=== PATIENT | male | born 1940 | race Caucasian/White ===

== ENCOUNTER → 2018-06-03 10:20 | Outpatient (CLI) | payer OTHER, SELFPAY ==
[2018-06-03 10:53] LABS: Add Manual Diff / Slide Review NO; Eosinophils Percent Auto 3.1 % (2-4); Hematocrit 40.7 % (41-53); Hemoglobin 13.7 g/dL (13.5-17.5); Mean Corpuscular HGB Conc 33.6 % (30-36); Mean Corpuscular Hemoglobin 30.4 PG (26-34); Mean Corpuscular Volume 90.5 fL (80-100); Monocytes Percent Auto 9.6 % (3-14); Neutrophils Absolute Auto 7600 /uL (3000-5900); Neutrophils Percent Auto 71.3 % (50-75); Platelet Count 196 X10^3/uL (150-400); White Blood Cell Count 10.7 X10^3/uL (4.5-11.0)
[2018-06-03 11:08] LABS: C-Reactive Protein Quant 2.1 mg/dL (<1.0)
[2018-06-03 12:07] LABS: Erythrocyte Sedimentation Rate 17 MM/HR (0-15)
== END ==
PROVIDERS: Family Provider Family Medicine; PCP Family Medicine; Visit Provider Physician Assistant
DX: M71.161 Other infective bursitis, right knee (principal)
CPT/HCPCS: 85025; 85651; 86140; 87040

== ENCOUNTER → 2018-06-07 10:29 | Outpatient (CLI) | payer OTHER, SELFPAY ==
[2018-06-07 11:44] LABS: Add Manual Diff / Slide Review NO; Basophils Percent Auto 0.8 % (0-2); Eosinophils Percent Auto 2.8 % (2-4); Hematocrit 39.4 % (41-53); Hemoglobin 13.3 g/dL (13.5-17.5); Lymphocytes Percent Auto 16.8 % (25-40); Mean Corpuscular HGB Conc 33.9 % (30-36); Mean Corpuscular Hemoglobin 30.6 PG (26-34); Mean Corpuscular Volume 90.4 fL (80-100); Monocytes Percent Auto 10.7 % (3-14); Neutrophils Absolute Auto 7100 /uL (3000-5900); Neutrophils Percent Auto 68.9 % (50-75); Platelet Count 189 X10^3/uL (150-400); Red Blood Cell Count 4.36 X10^6/uL (4.5-5.9); Red Cell Distribution Width 13.8 % (11.6-14.8); White Blood Cell Count 10.3 X10^3/uL (4.5-11.0)
[2018-06-07 13:25] LABS: Hemoglobin A1C% w Est Avg Glu 6.3 % (4.0-6.0)
[2018-06-07 15:10] LABS: Microalbumi Creatinin Ratio Ur 18.3 ug/mg CR (<30); Microalbumin Urine Random 2.6 mg/dL (0-1.6)
[2018-06-07 15:45] LABS: Alanine Aminotransferase 23 IU/L (21-72); Albumin Globulin Ratio 1.4 (1.0-2.8); Alkaline Phosphatase 42 U/L (38-126); Aspartate Aminotransferase 21 IU/L (17-59); Blood Urea Nitrogen 18 mg/dL (9-20); Carbon Dioxide 30 mmol/L (22-32); Chloride 102 mmol/L (98-107); Cholesterol 140 mg/dL (140-199); Estimated Glomerular Filt Rate > 60.0 mL/min (>60); Globulin 2.9 g/dL (1.7-4.1); Glucose 105 mg/dL (80-110); HDL Cholesterol 41 mg/dL (40-60); HEMOLYSIS < 15 (0-50); LDL Cholesterol Calculated 82 mg/dL (<100); Potassium 4.4 mmol/L (3.4-5.1); Sodium 141 mmol/L (137-145); Total Protein 6.9 g/dL (6.3-8.2); Triglycerides 85 mg/dL (35-150)
[2018-06-07 16:14] LABS: Prostate Specific Antigen Scrn 0.218 ng/mL (0.1-4.0)
== END ==
PROVIDERS: PCP Family Medicine; Visit Provider Family Medicine
DX: E11.9 Type 2 diabetes mellitus without complications (principal)
CPT/HCPCS: 36415; 80053; 80061; 82043; 82570; 83036; 84443; 85025; G0103

== ENCOUNTER → 2018-08-08 16:47 | Outpatient (CLI) | payer OTHER, SELFPAY ==
--- NOTE | 2018-08-08 16:52 | DI.RAD.S_ITS ---
PROCEDURE: XR FEMUR RT MIN 2V INDICATIONS: thigh pain TECHNIQUE: 3 views of the femur were acquired. COMPARISON: [facility], CR, XR KNEE RT 3V, 08/08/2018, 16:28. FINDINGS: Bones: No fractures or dislocations. No suspicious bony lesions. Degenerative changes are present within the knee as well as the visualized right hip. Soft tissues: No suspicious soft tissue calcifications or masses. IMPRESSION: Degenerative knee and hip changes most consistent with arthritic change. Dictated by: Bethany Kirby M.D. on 08/08/2018 at 17:29 Approved by: Bethany Kirby M.D. on 08/08/2018 at 17:32
--- NOTE | 2018-08-08 16:52 | DI.RAD.S_ITS ---
PROCEDURE: XR KNEE RT 3V INDICATIONS: thigh pain TECHNIQUE: 3 views of the knee were acquired. COMPARISON: [facility], CR, XR FEMUR RT MIN 2V, 08/08/2018, 16:28. FINDINGS: Bones: No fractures or dislocations. No suspicious bony lesions. Moderate medial and patellofemoral degenerative changes are present. Soft tissues: Mild to moderate joint effusion. No suspicious soft tissue calcifications. IMPRESSION: Moderate effusion with degenerative changes at the knee consistent with arthritis. Dictated by: Bethany Kirby M.D. on 08/08/2018 at 17:28 Approved by: Bethany Kirby M.D. on 08/08/2018 at 17:29
== END ==
PROVIDERS: Family Provider Family Medicine; PCP Family Medicine; Visit Provider Family Medicine
DX: M79.651 Pain in right thigh (principal); M17.11 Unilateral primary osteoarthritis, right knee; M25.461 Effusion, right knee
CPT/HCPCS: 73552; 73562

== ENCOUNTER → 2019-05-08 14:39 | Outpatient (CLI) | payer OTHER, SELFPAY ==
[2019-05-08 15:08] LABS: Add Manual Diff / Slide Review NO; Basophils Absolute Auto 100 /uL (0-100); Basophils Percent Auto 0.8 % (0-2); Eosinophils Absolute Auto 200 /uL (0-450); Eosinophils Percent Auto 1.8 % (2-4); Hematocrit 46.3 % (41-53); Hemoglobin 15.5 g/dL (13.5-17.5); Lymphocytes Absolute Auto 1800 /uL (1100-4500); Lymphocytes Percent Auto 21.3 % (25-40); Mean Corpuscular HGB Conc 33.6 % (30-36); Mean Corpuscular Hemoglobin 30.3 PG (26-34); Mean Corpuscular Volume 90.3 fL (80-100); Monocytes Absolute Auto 900 /uL (0-900); Monocytes Percent Auto 10.4 % (3-14); Neutrophils Absolute Auto 5700 /uL (1500-7000); Neutrophils Percent Auto 65.7 % (50-75); Platelet Count 189 X10^3/uL (150-400); Red Blood Cell Count 5.12 X10^6/uL (4.5-5.9); Red Cell Distribution Width 14.3 % (11.6-14.8); White Blood Cell Count 8.7 X10^3/uL (4.5-11.0)
[2019-05-08 15:18] LABS: Alanine Aminotransferase 12 IU/L (21-72); Albumin 4.7 g/dL (3.5-5.0); Albumin Globulin Ratio 1.3 (1.0-2.8); Alkaline Phosphatase 46 U/L (38-126); Aspartate Aminotransferase 23 IU/L (17-59); Blood Urea Nitrogen 21 mg/dL (9-20); Calcium 9.5 mg/dL (8.4-10.2); Carbon Dioxide 31 mmol/L (22-32); Chloride 105 mmol/L (98-107); Cholesterol 170 mg/dL (140-199); Estimated Glomerular Filt Rate > 60.0 mL/min (>60); Globulin 3.5 g/dL (1.7-4.1); Glucose 108 mg/dL (80-110); HDL Cholesterol 42 mg/dL (40-60); HEMOLYSIS < 15 (0-50); LDL Cholesterol Calculated 106 mg/dL (<100); Potassium 4.6 mmol/L (3.4-5.1); Sodium 145 mmol/L (137-145); Total Protein 8.2 g/dL (6.3-8.2); Triglycerides 109 mg/dL (35-150)
[2019-05-08 15:49] LABS: Prostate Specific Antigen Scrn 0.235 ng/mL (0.1-4.0)
[2019-05-08 16:48] LABS: Thyroid Stimulating Hormone 1.35 uIU/mL (0.47-4.68)
== END ==
PROVIDERS: Family Provider Family Medicine; PCP Family Medicine; Visit Provider Family Medicine
DX: E78.2 Mixed hyperlipidemia (principal)
CPT/HCPCS: 36415; 80053; 80061; 84443; 85025; G0103

== ENCOUNTER → 2019-05-11 09:20 | Outpatient (CLI) | payer OTHER, SELFPAY ==
[2019-05-11 10:39] LABS: Hemoglobin A1C% w Est Avg Glu 5.8 % (4.0-6.0)
== END ==
PROVIDERS: PCP Family Medicine; Visit Provider Family Medicine
DX: E11.9 Type 2 diabetes mellitus without complications (principal)
CPT/HCPCS: 36415; 83036

== ENCOUNTER → 2019-07-13 15:45 | Outpatient (CLI) | payer OTHER, SELFPAY ==
[2019-07-13 16:23] LABS: Hematocrit 42.6 % (41-53); Hemoglobin 14.2 g/dL (13.5-17.5); Mean Corpuscular HGB Conc 33.4 % (30-36); Mean Corpuscular Hemoglobin 30.3 PG (26-34); Mean Corpuscular Volume 90.8 fL (80-100); Platelet Count 161 X10^3/uL (150-400); Red Blood Cell Count 4.69 X10^6/uL (4.5-5.9); Red Cell Distribution Width 14.1 % (11.6-14.8); White Blood Cell Count 9.2 X10^3/uL (4.5-11.0)
[2019-07-13 16:37] LABS: C-Reactive Protein Quant 0.5 mg/dL (<1.0)
[2019-07-13 16:52] LABS: Erythrocyte Sedimentation Rate 8 MM/HR (0-15)
== END ==
PROVIDERS: PCP Family Medicine; Visit Provider Ophthalmology
DX: H54.3 Unqualified visual loss, both eyes (principal)
CPT/HCPCS: 36415; 83519; 85027; 85651; 86140

== ENCOUNTER → 2020-06-09 10:07 | Outpatient (CLI) | payer OTHER, SELFPAY ==
--- NOTE | 2020-06-09 10:10 | DI.RAD.S_ITS ---
PROCEDURE: XR ANKLE RT MIN 3V INDICATIONS: Pain RIGHT ANKLE TECHNIQUE: 3 views of the ankle were acquired. COMPARISON: None. FINDINGS: Bones: No fractures or dislocations. Ankle mortise is normally aligned. No suspicious bony lesions. Mild to moderate osteoarthritis at the tibiotalar joint. Soft tissues: No tibiotalar joint effusion. Achilles tendon appears normal. 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 Dictated by: Obed Jaimes M.D. on 06/09/2020 at 11:53 Approved by: Obed Jaimes M.D. on 06/09/2020 at 11:54
[2020-06-09 10:43] LABS: Add Manual Diff / Slide Review NO; Basophils Absolute Auto 100 /uL (0-100); Basophils Percent Auto 1.1 % (0-2); Eosinophils Absolute Auto 200 /uL (0-450); Eosinophils Percent Auto 3.2 % (2-4); Hemoglobin 13.6 g/dL (13.5-17.5); Lymphocytes Absolute Auto 1700 /uL (1100-4500); Mean Corpuscular HGB Conc 33.3 % (30-36); Mean Corpuscular Hemoglobin 30.6 PG (26-34); Mean Corpuscular Volume 91.8 fL (80-100); Monocytes Absolute Auto 700 /uL (0-900); Monocytes Percent Auto 10.6 % (3-14); Neutrophils Absolute Auto 4300 /uL (1500-7000); Neutrophils Percent Auto 61.1 % (50-75); Platelet Count 181 X10^3/uL (150-400); Red Blood Cell Count 4.46 X10^6/uL (4.5-5.9); Red Cell Distribution Width 14.7 % (11.6-14.8)
[2020-06-09 10:54] LABS: Alanine Aminotransferase 16 IU/L (<50); Albumin 4.4 g/dL (3.5-5.0); Albumin Globulin Ratio 1.4 (1.0-2.8); Alkaline Phosphatase 48 U/L (38-126); Aspartate Aminotransferase 26 IU/L (17-59); BUN Creatinine Ratio 22.7 (6-22); Bilirubin Total 0.8 mg/dL (0.2-1.3); Blood Urea Nitrogen 22 mg/dL (9-20); Calcium 9.5 mg/dL (8.4-10.2); Carbon Dioxide 34 mmol/L (22-32); Chloride 105 mmol/L (98-107); Cholesterol 177 mg/dL (140-199); Estimated Glomerular Filt Rate > 60.0 mL/min (>60); Globulin 3.1 g/dL (1.7-4.1); Glucose 106 mg/dL (80-110); HDL Cholesterol 42 mg/dL (40-60); HEMOLYSIS < 15 (0-50); Hemoglobin A1C% w Est Avg Glu 5.9 % (4.0-6.0); LDL Cholesterol Calculated 113 mg/dL (<100); Potassium 4.8 mmol/L (3.4-5.1); Sodium 141 mmol/L (137-145); Total Protein 7.5 g/dL (6.3-8.2); Triglycerides 112 mg/dL (35-150)
[2020-06-09 11:23] LABS: Prostate Specific Antigen Scrn 0.216 ng/mL (0.1-4.0)
[2020-06-09 11:58] LABS: Thyroid Stimulating Hormone 1.58 uIU/mL (0.47-4.68)
== END ==
PROVIDERS: PCP Family Medicine; Referring Provider Family Medicine; Visit Provider Family Medicine
DX: M25.571 Pain in right ankle and joints of right foot (principal); E78.2 Mixed hyperlipidemia; E11.9 Type 2 diabetes mellitus without complications; Z12.5 Encounter for screening for malignant neoplasm of prostate
CPT/HCPCS: 36415; 73610; 80053; 80061; 83036; 84443; 85025; G0103

== ENCOUNTER → 2020-06-12 12:34 | Outpatient (CLI) | payer OTHER, SELFPAY ==
--- NOTE | 2020-06-12 12:35 | DI.RAD.S_ITS ---
PROCEDURE: FL BARIUM SWALLOW INDICATIONS: Dysphagia COMPARISON: None. FINDINGS: Function: There is decreased esophageal peristalsis. Delayed esophageal clearance. Spontaneous gastroesophageal reflux is seen to the level of the thoracic inlet. Morphology: Air-contrast images demonstrate normal mucosal morphology. Single contrast views show no esophageal strictures, extrinsic mass effects, or diverticula. Limited images of the stomach demonstrate normal appearance. IMPRESSION: Spontaneous gastroesophageal reflux Esophageal dysmotility. Dictated by: Foreign Hagen M.D. on 06/12/2020 at 13:45 Approved by: Foreign Hagen M.D. on 06/12/2020 at 13:46
== END ==
PROVIDERS: PCP Family Medicine; Referring Provider Family Medicine; Visit Provider Family Medicine
DX: R13.10 Dysphagia, unspecified (principal); K21.9 Gastro-esophageal reflux disease without esophagitis; K22.4 Dyskinesia of esophagus
CPT/HCPCS: 74220

== ENCOUNTER → 2020-06-30 11:48 | Outpatient (CLI) | payer OTHER, SELFPAY ==
[2020-07-01 21:11] LABS: COVID19 Sendout Not Detected (Not Detect)
== END ==
PROVIDERS: PCP Family Medicine; Visit Provider Physician Assistant
DX: Z11.59 Encounter for screening for other viral diseases (principal)
CPT/HCPCS: 87635

== ENCOUNTER 2020-07-03 07:45 | Day surgery (SDC) | payer OTHER, SELFPAY ==
--- NOTE | 2020-07-03 | PATH_ITS ---
[facility] Accession Number: [id number] . 01 Material submitted: . PART A: esophagus, E-G Junction - GE JUNCTION PART B: colon - POLYP NEAR HEPATIC FLEXURE PART C: colon - POLYP AT 80CM . 02 Diagnosis: A. Gastroesophageal Junction, Biopsy: Squamocolumnar junctional mucosa with specialized intestinal metaplasia, consistent with Novak's esophagus. Negative for dysplasia and malignancy. . B. Colon, Polyp Near Hepatic Flexure, Biopsy: Colonic mucosa with no significant diagnostic abnormality, consistent with polypoid redundancy. Additional levels were examined. Negative for dysplasia and malignancy. . C. Colon, Polyp at 80 cm, Biopsy: Sessile serrated adenoma. MRV 07/08/2020 1325 Local . 02 Electronically signed: . Shanda Purvis MD, Pathologist NPI- [id number] . 01 Gross description: . A. Received in formalin, labeled with the patient's name, MRN and GE junction biopsy, are multiple chu-white irregular fragments of tissue ranging in size from 0.1 cm to 0.2 cm in greatest dimension. The specimen is filtered and entirely submitted in cassette A1. B. Received in formalin, labeled with the patient's name, MRN and polyp near hepatic flexure, are four chu-white irregular fragments of tissue, each measuring 0.2 cm in greatest dimension. The specimen is filtered and entirely submitted in cassette B1. C. Received in formalin, labeled with the patient's name, MRN and polyp at 80 cm, are multiple chu-white irregular fragments of tissue ranging in size from 0.2 cm to 0.5 cm in greatest dimension. the specimen is filtered and entirely submitted in cassette C1. (SD/cmc10 [id number]) /MRV 07/04/2020 [facility] Local . 02 Microscopic: . B. Additional levels were examined. . 02 Pathologist provided ICD-10: D12.6, K22.70 . 02 CPT . 261830, 356666, 913088 Performed at: 01 [facility] [address] [id number] MD Barak Hernandez MD Phone: [phone] Performed at: 02 [facility] [address] [place] [id number] MD Shanda Purvis MD Phone: [phone]
[2020-07-03 08:07] VITALS: BP 151/82; PULSE 78; RESP 16; TEMP 36.2; O2SAT 99
[2020-07-03 08:16] VITALS: BMI 26.7
--- NOTE | 2020-07-03 08:46 | PM.PREOP ---
Pre-operative Note COVID-19 COVID-19 status: Negative Result date/Date tested (Pos, Neg/Pending): 06/30/20 Interval Note History & Physical reviewed/Exam performed by Physician: Yes Changes to H&P: No ASA Class (for procedural sedation): III
[2020-07-03] MEDS: LIDOCAINE 4% SOLN 50 ML 20 ML TOP (09:00)
[2020-07-03] MEDS: LACTATED RINGERS 1,000 ML 200 ML IV (09:00)
[2020-07-03] MEDS: MIDAZOLAM 5 MG/5 ML VIAL IV ×5 (09:01→09:17)
[2020-07-03] MEDS: fentaNYL 250 MCG/5 ML INJ IV ×5 (09:01→09:17)
[2020-07-03 10:00] VITALS: BP 120/86; PULSE 65; RESP 10; TEMP 36.7; O2SAT 92
--- NOTE | 2020-07-03 10:01 | PM.OP.ENDO ---
Operative Date/Time/Diagnoses Date of procedure: 07/03/20 Time of procedure: 10:01 Pre-op diagnosis: Dysphagia. Screening for colon cancer. Post-op diagnosis: same (Tortuosity of the proximal esophagus. Possible Novak's esophagus. Colon polyps. Prep on satisfactory. Colonoscopy will need to be repeated.) Procedure & Clinicians Study performed: EGD with cold biopsy. Colonoscopy with cold biopsy. Same procedure as scheduled: Yes Indications: Dysphagia. Screening for colon cancer. Surgeon: Raj Salazar Procedure Notes SCOAP/Timeout: Perform Procedure in detail: The patient had topical anesthetic applied to oropharynx. She was placed in left lateral decubitus position and underwent IV sedation directed by the surgeon consisting of fentanyl and Versed. A bite block was inserted and the scope was advanced through it into the esophagus. The esophagus was notable for tortuosity of the proximal esophagus just below the level of the vocal cords for the 1st 5 cm of the esophagus. There was no narrowing.. GE junction was noted at 42 cm from the incisors. The stomach insufflated well. There were no lesions seen in the body, antrum or at the incisura. The pyloric channel was patent. The duodenum was unremarkable to the 4th part. The scope was brought back into the stomach and retroflexed. The proximal stomach was normal in appearance. No evidence of hiatal hernia.. The scope was straightened and brought out through the esophagus again. There was an appearance suggestive of possible Novak's esophagus of biopsies were taken at the GE junction. No other lesions were seen. There was no narrowing of the esophagus. The scope was removed and the patient tolerated the procedure well. The patient was then repositioned and placed in the left lateral decubitus position and underwent additional IV sedation directed by the surgeon consisting of fentanyl and Versed. Digital exam was remarkable for a possible very small nodule just to the left of midline on his distal prostate. The scope was inserted and advanced through the rectum into the sigmoid, descending, transverse, and ascending colon. The patient had sigmoid diverticulosis. He had a lot of fluid in his colon. Unfortunately he also had a lot of very hard small seeds which blocked the suction mechanism of the scope repeatedly. It finally reached a point where it completely blocked the scope and despite passing brushes through the channels I could not get the suction to function. The cecum was reached but was fluid filled and I could not suction it out. The scope was gradually brought out. There were numerous areas that were poorly seen due to fluid which I could not remove. Polyps were found at the area near the hepatic flexure and at 80 cm from anal verge. These were removed with cold biopsy forceps.. The scope was ultimately removed. the patient tolerated the procedure well. The prep was poor. The scope should be rescheduled within the next year. Scope withdrawal time: Not recorded due to the poor p Sedation minutes: 53 Findings: Novak's esophagus (Possible), diverticulosis, polyp and other findings (Possible small prostate nodule to the left of midline) Specimen(s): other (GE junction biopsies. Polyp biopsies) Complications: none Post-procedure Recommendations: Colonscopy in 1 year (Colonoscopy Should be rescheduled within 1 year) Follow up: as needed (For scope within 1 year) Disposition: PACU
[2020-07-03 10:05] VITALS: BP 147/94; PULSE 69; RESP 12; O2SAT 95
[2020-07-03 10:10] VITALS: BP 149/92; PULSE 76; RESP 14; O2SAT 92
[2020-07-03 10:20] VITALS: BP 151/92; PULSE 82; RESP 16; TEMP 36.5; O2SAT 92
[2020-07-03 10:40] VITALS: BP 146/82; PULSE 60; RESP 18; O2SAT 96
== END 2020-07-03 10:50 | disposition home or self-care (01) ==
PROVIDERS: PCP Family Medicine; Referring Provider Specialist; Visit Provider Specialist
PROC: 0DJ08ZZ Inspection of Upper Intestinal Tract, Via Natural or Artificial Opening Endoscopic (ICD-10-PCS; CPT 43235; principal; 2020-07-03 08:45)
PROC: 0DJD8ZZ Inspection of Lower Intestinal Tract, Via Natural or Artificial Opening Endoscopic (ICD-10-PCS; CPT 45378; 2020-07-03 08:45)
DX: Z12.11 Encounter for screening for malignant neoplasm of colon (principal); R13.10 Dysphagia, unspecified; K57.30 Diverticulosis of large intestine without perforation or abscess without bleeding; R63.4 Abnormal weight loss; K22.70 Barrett's esophagus without dysplasia; D12.6 Benign neoplasm of colon, unspecified
CPT/HCPCS: 45380; 43239; 99152; 99153; J2250; J3010

== ENCOUNTER → 2020-10-08 08:59 | Outpatient (CLI) | payer OTHER, SELFPAY ==
--- NOTE | 2020-10-08 | DI.ECHO.S_ITS ---
[facility]---------+ [facility] +---------+ : : [address] : : : : [id number] : : : : Phone: [phone]+ Echocardiogram Report + + :Name: BERNADINE MARTINEZ Study Date: 10/08/2020 Height: 72 in : :[facility] Weight: 202 lb : : Gender: Male BSA: 2.1 m2 : :: 1940 Age: 80 yrs BP: 158/86 mmHg: :Reason For Study: ATRIAL FIBRILLATION : :Ordering Physician: VIKY, : :LAYLA Performed By: Marycruz Hu : :Referring: LAYLA CONTRERAS : + + Interpretation Summary 1) Mildly enlarged left ventricle with moderately reduced systolic function (EF 35-40%). 2) Mildly enlarged right ventricle with mildly reduced function. 3) Severe biatrial enlargement. 4) There is moderate mitral regurgitation that is directed posteriorly. 5) The ascending aorta is mild-moderately enlarged at 4.4cm. 6) Hypertension present during the study (BP 158/86mmHg). 7) Compared to the Echo done 09/20/2016, LVEF has dropped from 55-60% to 35-40% on this study. Procedure: A two-dimensional transthoracic echocardiogram with color flow and Doppler was performed. Comparison is made with the echocardiogram of 09/20/2016. The study quality was technically adequate. The patient was in atrial flutter with heart rates between 48-62 bpm during the exam. Left Ventricle: The estimated left ventricular end diastolic volume is 151 ml. The left ventricle is mildly dilated. Left ventricular wall thickness is borderline increased. The ejection fraction is estimated to be 35-40%. There is moderate global hypokinesis of the left ventricle. Diastolic function could not be accurately assessed due to atrial fibrillation. Right Ventricle: The right ventricle is mildly dilated. Right ventricular systolic function is mildly reduced. Atria: The left atrium is severely dilated. The right atrium is severely dilated. There is no Doppler evidence for an interatrial shunt. Mitral Valve: The mitral valve leaflets appear mildly thickened, but open well. There is moderate mitral regurgitation. There is an eccentric jet of mitral regurgitation that is directed posteriorly. Aortic Valve: The aortic valve is trileaflet. The aortic valve opens well. The aortic valve is mildly calcified. There is no aortic valve stenosis. No aortic regurgitation is present. Tricuspid Valve: The tricuspid valve is normal in structure and function. There is mild tricuspid regurgitation. Pulmonic Valve: The pulmonic valve is not well visualized. There is trace pulmonic regurgitation. Great Vessels: The aortic root is normal size. The ascending aorta is mild- moderately enlarged. The IVC is of normal diameter and collapses greater than 50% with a sniff. This suggests a low right atrial pressure of 3 mm Hg. Pericardium/ Pleura There is no pericardial effusion. There is no pleural effusion. MMode/2D Measurements & Calculations LVIDd: 5.5 cm LVOT diam: 2.2 cm LVIDs: 5.0 cm Ao root diam: 3.6 cm FS: 9.9 % asc Aorta Diam: 4.4 cm EPSS: 1.1 cm Ao Arch Diam (Prox Trans): 3.0 cm IVSd: 1.1 cm LVPWd: 0.89 cm LV hogan. diameter/BSA (cm/m^2): 2.6 LV sys. diameter/BSA (cm/m^2): 2.3 LA A2 area: 33.2 cm2 RA long axis: 6.9 cm LA A4 area: 29.7 cm2 RA area: 29.6 cm2 LA length (vol): 7.0 cm RA vol: 108.5 ml LA vol: 119.3 ml RA : 50.7 ml/m2 LA vol index: 55.8 ml/m2 IVC diam: 1.8 cm RVD1 (basal): 4.4 cm TAPSE: 1.7 cm Doppler Measurements & Calculations Ao V2 max: 120.5 cm/sec LVOT Max Emeterio: 67.3 cm/sec Ao V2 mean: 82.8 cm/sec LV V1 max P.8 mmHg Ao max P.8 mmHg LV V1 VTI: 15.7 cm Ao mean P.1 mmHg ANDREW(I,D): 2.4 cm2 Ao V2 VTI: 25.5 cm ANDREW(V,D): 2.2 cm2 sev ratio: 0.61 ANDREW indexed to BSA (cm^2/m^2): 1.1 MV E max emeterio: 85.5 cm/sec PA V2 max: 55.6 cm/sec MV A max emeterio: 29.4 cm/sec PA V2 mean: 32.8 cm/sec MV E/A: 2.9 PA mean P.52 mmHg Med Peak E' Emeterio: 3.2 cm/sec PA pr(Accel): 39.6 mmHg E/E' med: 26.6 Lat Peak E' Emeterio: 7.1 cm/sec E/E' lat: 12.0 E/e' average: 19.3 MV dec time: 0.19 sec MVA(VTI): 2.7 cm2 MR ERO: 0.16 cm2 MV V2 mean: 53.6 cm/sec MR PISA: 2.8 cm2 MV mean P.5 mmHg MR flow rate: 89.7 cm3/sec MV V2 VTI: 22.7 cm MR PISA radius: 0.67 cm SV(LVOT): 62.2 ml Reading Physician:01:38 PM
== END ==
PROVIDERS: PCP Family Medicine; Referring Provider Internal Medicine Cardiovascular Disease; Visit Provider Internal Medicine Cardiovascular Disease
DX: I08.1 Rheumatic disorders of both mitral and tricuspid valves (principal); I77.89 Other specified disorders of arteries and arterioles; I48.11 Longstanding persistent atrial fibrillation
CPT/HCPCS: 93306

== ENCOUNTER → 2020-10-15 10:38 | Outpatient (CLI) | payer OTHER, SELFPAY ==
[2020-10-15 11:15] LABS: Hemoglobin A1C% w Est Avg Glu 6.3 % (4.0-6.0)
[2020-10-15 11:30] LABS: BUN Creatinine Ratio 25.8 (6-22); Blood Urea Nitrogen 23 mg/dL (9-20); Calcium 9.1 mg/dL (8.4-10.2); Carbon Dioxide 33 mmol/L (22-32); Chloride 106 mmol/L (98-107); Cholesterol 133 mg/dL (140-199); Estimated Glomerular Filt Rate > 60.0 mL/min (>60); Glucose 116 mg/dL (80-110); HDL Cholesterol 34 mg/dL (40-60); HEMOLYSIS < 15 (0-50); LDL Cholesterol Calculated 78 mg/dL (<100); Sodium 140 mmol/L (137-145); Triglycerides 107 mg/dL (35-150)
== END ==
PROVIDERS: PCP Family Medicine; Referring Provider Family Medicine; Visit Provider Family Medicine
DX: E11.9 Type 2 diabetes mellitus without complications (principal); E78.2 Mixed hyperlipidemia; I10 Essential (primary) hypertension
CPT/HCPCS: 36415; 80048; 80061; 83036

== ENCOUNTER → 2020-10-24 16:12 | Outpatient (CLI) | payer OTHER, SELFPAY ==
--- NOTE | 2020-10-24 16:14 | DI.MRI.S_ITS ---
PROCEDURE: MR ANKLE RT WO CON INDICATIONS: Persistent pain TECHNIQUE: Noncontrast sagittal T1 spin echo and T2 fast spin echo with fat saturation, axial proton density fast spin echo and T2 fast spin echo with fat saturation, coronal T1 spin echo and T2 fast spin echo with fat saturation through the ankle/hindfoot. COMPARISON: None. FINDINGS: Image quality: Excellent. Bones and joints: No bone marrow contusions or fractures. No hindfoot coalitions. Severe tibiotalar joint degeneration. Extensive T2 hyperintensity involving the medial and lateral talar dome, suggestive of cysts versus less likely erosions. Small tibiotalar joint effusion. Medial structures: Posterior tibialis intact. Tiny unfused accessory navicular. There is posterior tibialis tenosynovitis Flexor digitorum longus intact. Flexor hallucis longus tendon intact. The posterior tibial neurovascular bundle appears normal within the tarsal tunnel, without extrinsic mass effect. Deltoid ligament complex not well visualized although this finding probably chronic.. The spring ligament appears intact. Lateral structures: Anterior talofibular ligament not well seen and probably ruptured although unknown age, probably chronic. Calcaneofibular ligament intact. Posterior talofibular ligament intact. Anterior and posterior tibiofibular ligaments appear intact, as is the intermalleolar ligament. Tibiofibular syndesmosis is normal in width at 2 mm or less. Peroneus longus and brevis tendons appear normal. Peroneus longus and brevis tenosynovitis. Bony peroneal tubercle and retrotrochlear prominence are normal in size. Sinus tarsi demonstrates normal fatty signal, without edema, fibrosis, or cyst formation. Anterior structures: Tibialis anterior intact. Extensor hallucis longus intact. Extensor digitorum longus tendon intact. Dorsal talonavicular ligament appears intact. Posterior and plantar structures: Achilles tendon is intact. Medial and lateral bands of the plantar fascia intact. No abductor digiti quinti muscle atrophy to suggest Alston neuropathy. 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 Probably chronic sprain/rupture of the anterior talofibular ligament. Tibiotalar joint effusion and prominent degenerative subchondral cystic change versus less likely erosions at the medial and lateral talar dome. Dictated by: Foreign Hagen M.D. on 10/27/2020 at 8:29 Approved by: Foreign Hagen M.D. on 10/27/2020 at 8:40
== END ==
PROVIDERS: PCP Family Medicine; Referring Provider Family Medicine; Visit Provider Family Medicine
DX: M25.571 Pain in right ankle and joints of right foot (principal); M65.871 Other synovitis and tenosynovitis, right ankle and foot; S93.421A Sprain of deltoid ligament of right ankle, initial encounter
CPT/HCPCS: 73721

== ENCOUNTER 2021-05-27 09:30 | Outpatient (RCR) | payer OTHER, SELFPAY ==
--- NOTE | 2021-01-16 11:53 | ST.OPIE ---
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 Davis Reason for Referral dysphonia Setting Setting Outpatient Care Patient History General Information Pt is a pleasant 80 year old male seen for a voice evaluation. Pt reported that approximately 2 years ago, he had shingles in his mouth and pharynx (varacellar zoster). Since that time, he has noted a change in his voice. He describes his voice as frequently changing, difficult to be heard and periodically aphonic. he saw Dr Mccoy, ENT, who diagnosed unilateral vocal fold paresis/weakness and recommended speech therapy . Occupational Status Occupation Status Retired Oral Motor Assessment Source: [employer] ([employer]). Oral-Motor Eval Completed Yes Oral-Motor Assessment Informal evaluation noted structures and function to be WFL. - Laryngeal Performance Voice Handicap Index Function Subtotal 17 Physical Subtotal 16 Emotional Subtotal 14 Total Score 47 Severity Moderate (31-60) CAPE-V Overall Severity 65 Roughness 80 Breathiness 76 Strain 35 Pitch 58 Loudness 5 Normal Resonance? Yes Additional Features Diplophonia,Glottal Sepulveda, Falsetto,Aphonia,Pitch Instability Maximum Phonation Time MPT Norms: Women (15-25) Men (25-35) Loudness (50-60 dB); Speaking Rate: Oral Reading of Sentences (190 Words Per Minute); Oral Reading of Paragraphs (160-170 WPM); Speaking Rate in Conversation (150-250 WPM) Maximum Phonation Time 14.6 Maximum Phonation Time Adequate for Speech,Unstable Tone,Unstable Pitch,Unstable Loudness Jitter/Shimmer Norms: Jitter (Less than or equal to 1.040% - Frequency) Norms: Shimmer (Less than or equal to 3.810% - Amplitude) Jitter 7.41 Shimmer 15.88 Pitch Flaxton Pitch Flaxton Pitch Breaks,Cessation of Voicing Pitch Flaxton Comments Pt was able to reach falsetto . With falsetto, vocal quality improved Muscle Tension Assessment Muscle Tension Assessment Neck,Shoulders Breath Support Breath Support At Rest Abdominal Breath Support Sustained Phonation Abdominal,Mixed Breath Support Conversation Abdominal Speaks on Room Air Yes Postural Alignment Stance Balanced Neck Static Shoulders Symmetrical Voice Pitch Range Norms: Women (100-300 Hz) Men (70-250 Hz) Fundamental Frequency Norms: Women (Mean: 225 Hz; Range: 155-334 Hz) Men ( Mean: 128 Hz; Range: 85-196 Hz) Voice Pitch Excessive Variation,Pitch Breaks,Diplophonia Voice Loudness Excessive Variation Voice Phonatory-based Quality Breathy,Hoarse,Loss of Voice, Glottal Sepulveda,Pitch Breaks, Diplophonia Fundamental Frequency 164.6 Paradoxical Vocal Fold Movement No Indications Resonance Nasal Resonance Normal Oral Resonance Normal Therapeutic Techniques Other Tactics Vocal adduction exercises to increase medial compression/ strength Findings Findings Moderate-Severe Impairment Observations pt reported that he gets tension in his shoulders and neck area Voice/Resonance Assessment Assessment 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 Vocal quality demonstrates hoarseness, glottal sepulveda, pitch instability, loudness instability, pitch breaks and aphonia. Vocal adduction exercises were demonstrated and satisfactorily practiced by the pt. Written descriptions of the exercises was provided to the pt, who noted he understood. Pt indicated he was appreciative. Prognosis Rehabilitation Potential Good - Recommendations Treatment Recommended Yes Treatment Frequency/Duration 1x weekly; every 3-4 weeks after that for approximately 3 -4 months Short Term Goals Pt will complete vocal adduction exercises as described daily, as reported by pt. Pt will understand the anatomy and function of the laryngeal structures. Television Inspector Goals Pt's overall vocal quality will improve to WFL. Patient/Caregiver Education Patient/Family Education Described results of evaluation,Patient Understanding,Patient Demonstration
--- NOTE | 2021-01-16 11:55 | ST.OPPOC ---
[facility] Visit Care Team Role Provider Type Gordon Austin MD Attending Provider Physician Primary Care Provider Referring Provider Address: [address] [place] [address], [place] [address], [place], [address] Speech Pathology Plan of Care General Information Pt is a pleasant 80 year old male seen for a voice evaluation. Pt reported that approximately 2 years ago, he had shingles in his mouth and pharynx (varacellar zoster). Since that time, he has noted a change in his voice. He describes his voice as frequently changing, difficult to be heard and periodically aphonic. he saw Dr Mccoy, ENT, who diagnosed unilateral vocal fold paresis/weakness and recommended speech therapy . Plan of Care Dates 01/16/21-04/18/21 Shelter Goals Pt's overall vocal quality will improve to WFL. Electronically Signed by: RACIEL Calabrese 01/16/21 [id number] Please Sign and Return: I have reviewed this Plan of Care and certify that the skilled therapy services above are required to meet the patient?s needs. Physician Signature Date Printed Name and Credentials Clinical Instructor Signature Printed Name and Credentials
--- NOTE | 2021-01-23 10:01 | ST.OPTN ---
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 Pt reported that approximately 2 years ago, he had shingles in his mouth and pharynx (varacellar zoster). Since that time, he has noted a change in his voice. He describes his voice as frequently changing, difficult to be heard and periodically aphonic. he saw Dr Mccoy, ENT, who diagnosed unilateral vocal fold paresis/weakness and recommended speech therapy . 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 Vocal quality demonstrated hoarseness, glottal strange, pitch insability, loudness instability, pitch breaks and aphonia. Subjective Identification Type Name,Date of Chief Complaint(s) Voice Rehab Expectation/Goals: Patient Goals Improved vocal quality Patient Knowledge/Awareness of WET AND DRY SUGAR BIN OPERATOR Role Excellent in Treatment Patient/Caregiver Compliance with Home Excellent Exercise Program Objective Short Term Goals Pt will complete vocal adduction exercises as described daily, as reported by pt. Pt will understand the anatomy and function of the laryngeal structures. Detention Goals Pt's overall vocal quality will improve to WFL. Treatment Activities Reviewed vocal adduction exercises. Pt reported that after ~5 seconds on prolonged phonation, his vocal quality diminishes. Discussed the effect of fatigue on the paralyzed fold. Suggested trying to prolog the good vocal quality for ~1 sec more , building endurance. Pt reports doing the adduction exercises 1x/day. It was suggested that he increase the exercises to 3-4x/day. Will follow up with pt in 3 weeks. Assessment Patient Response to Treatment Excellent Rehab Potential Good Impairments Identified Dysphonia Progress Towards Goals Good Progress Assessment of Overall Progress Improving Reviewed with Patient Goals,Home Exercise Program Patient/Caregiver Understanding Excellent Plan Amount of Therapy Recommended 3-4 Months Comment every 3 weeks Length of Session 45 Minutes Treatment Emphasis Next Session review and demonstrate exercises performed as HEP. Therapeutic Contents Voice Training Provided Patient/Caregiver Instruction Home Exercise Program, Questions/Concerns Therapy Recommendations Continue with Current Program
--- NOTE | 2021-02-11 10:19 | ST.OPTN ---
Visit Care Team Role Provider Type Gordon Austin MD Attending Provider Physician Primary Care Provider Referring Provider Address: [address] [place] [address], [address], [place], [address] VITICULTURIST Treatment Note VITICULTURIST Treatment Note Start: 01/16/21 10:25 Freq: Status: Active Protocol: Document 02/11/21 09:32 LNK (Rec: 02/11/21 10:19 LNK [email or web address]) Speech Pathology Treatment Note Session Time Visit Start Time 09:30 Visit Stop Time 10:00 Total Visit Minutes 30 Visit Information Visit Number 3 Plan of Care Dates 01/16/21-04/18/21 Setting Treatment Setting Outpatient Care Visit Type Note Type Treatment Note Next Note Type Next Note Type Treatment Note General Information General Information Pt is a pleasant 80 year old male seen for a voice evaluation. Pt reported that approximately 2 years ago, he had shingles in his mouth and pharynx (varacellar zoster). Since that time, he has noted a change in his voice. He describes his voice as frequently changing, difficult to be heard and periodically aphonic. he saw Dr Mccoy, ENT, who diagnosed unilateral vocal fold paresis/weakness and recommended speech therapy . 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 Vocal quality demonstrated hoarseness, glottal strange, pitch instability, loudness instability, pitch breaks and aphonia. Subjective Identification Type Name,Date of Chief Complaint(s) Voice Rehab Expectation/Goals: Patient Goals Improved vocal quality Patient Knowledge/Awareness of VITICULTURIST Role Excellent in Treatment Patient/Caregiver Compliance with Home Excellent Exercise Program Objective Short Term Goals Pt will complete vocal adduction exercises as described daily, as reported by pt. Pt will understand the anatomy and function of the laryngeal structures. Custodial Goals Pt's overall vocal quality will improve to WFL. Treatment Activities Reviewed vocal adduction exercises. Pt reported that increased duration of prolonged phonation with more stable vocal quality. Today Jitter was .84 (WNL) and Shimmer was 5.8 (slightly above normal. Baritone pitch is more stable. Pt has increased the exercises to 3- 4x/day. Will follow up with pt in 4 weeks. Assessment Patient Response to Treatment Excellent Rehab Potential Good Impairments Identified Dysphonia Progress Towards Goals Good Progress Assessment of Overall Progress Improving Reviewed with Patient Goals,Home Exercise Program Patient/Caregiver Understanding Excellent Plan Amount of Therapy Recommended 3-4 Months Comment every 4 weeks Length of Session 45 Minutes Treatment Emphasis Next Session review and demonstrate exercises performed as HEP. Therapeutic Contents Voice Training Provided Patient/Caregiver Instruction Home Exercise Program, Questions/Concerns Therapy Recommendations Continue with Current Program
--- NOTE | 2021-03-12 17:09 | ST.OPTN ---
Visit Care Team Role Provider Type Gordon Austin MD Attending Provider Physician Primary Care Provider Referring Provider Address: [address] [place] [address], [address], [place], [address] MANAGER SUMMER Treatment Note MANAGER SUMMER Clinical Instructor Line Start: 03/12/21 13:14 Freq: Status: Active Protocol: Document 03/12/21 17:04 LNK (Rec: 03/12/21 17:04 LNK [email or web address]) Clinical Instructor Signature Clinical Instructor Clinical Instructor Yes MANAGER SUMMER Treatment Note Start: 01/16/21 10:25 Freq: Status: Active Protocol: Document 03/12/21 12:50 HM (Rec: 03/12/21 13:07 HM [email or web address]) Speech Pathology Treatment Note Session Time Visit Start Time 11:30 Visit Stop Time 12:10 Total Visit Minutes 40 Visit Information Visit Number 4 Plan of Care Dates 01/16/21-04/18/21 Setting Treatment Setting Outpatient Care Visit Type Note Type Treatment Note Next Note Type Next Note Type Treatment Note General Information General Information Pt is a pleasant 80 year old male seen for a voice evaluation. Pt reported that approximately 2 years ago, he had shingles in his mouth and pharynx (varacellar zoster). Since that time, he has noted a change in his voice. He describes his voice as frequently changing, difficult to be heard and periodically aphonic. he saw Dr Mccoy, ENT, who diagnosed unilateral vocal fold paresis/weakness and recommended speech therapy . 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 Vocal quality demonstrated hoarseness, glottal strange, pitch instability, loudess instability, pitch breaks and aphonia. Subjective Identification Type Name,Date of Chief Complaint(s) Voice Rehab Expectation/Goals: Patient Goals Improved vocal quality Patient Knowledge/Awareness of MANAGER SUMMER Role Excellent in Treatment Patient/Caregiver Compliance with Home Excellent Exercise Program Objective Short Term Goals Pt will complete vocal adduction exercises as described daily, as reported by pt. Pt will understand the anatomy and function of the laryngeal structures. Mcc Goals Pt's overall vocal quality will improve to WFL. Treatment Activities Reviewed vocal adduction exercises. Pt presented with an overall more stable vocal quality. However, he reported that he recently developed noticeable symptoms of reflux. He also noted a sore throat. Today, jitter was measured at 2.3294 and shimmer was 8.9527. Both these measurements were above normal limits, likely impacted by his reflux and sore throat. Pt's pitch continues to break into falsetto within parts of conversation. Pt's singing pitch range and fundamental frequency were WNL. Education provided on reflux management and additional glottal adduction without voicing exercises. Recommend a stroboscopy evaluation to assess vocal fold closure. Injection of filler into the vocal fold may be warranted for complete vocal fold adduction during phonation. Assessment Patient Response to Treatment Excellent Rehab Potential Good Impairments Identified Dysphonia Progress Towards Goals Good Progress Assessment of Overall Progress Improving Reviewed with Patient Goals,Home Exercise Program Patient/Caregiver Understanding Excellent Plan Amount of Therapy Recommended 3-4 Months Comment every 4 weeks Length of Session 45 Minutes Treatment Emphasis Next Session review and demonstrate exercises performed as HEP. Therapeutic Contents Voice Training Provided Patient/Caregiver Instruction Home Exercise Program, Questions/Concerns Therapy Recommendations Continue with Current Program
--- NOTE | 2021-04-06 15:22 | ST.OPTN ---
Visit Care Team Role Provider Type Gordon Austin MD Attending Provider Physician Primary Care Provider Referring Provider Address: [address] [place] [address], [address], [place], [address] SHIFT FOREMAN Treatment Note SHIFT FOREMAN Clinical Instructor Line Start: 03/12/21 13:14 Freq: Status: Active Protocol: Document 04/06/21 15:07 LNK (Rec: 04/06/21 15:07 LNK [id number]) Clinical Instructor Signature Clinical Instructor Clinical Instructor Yes SHIFT FOREMAN Treatment Note Start: 01/16/21 10:25 Freq: Status: Active Protocol: Document 04/06/21 11:41 HM (Rec: 04/06/21 11:54 HM [email or web address]) Speech Pathology Treatment Note Session Time Visit Start Time 10:30 Visit Stop Time 11:15 Total Visit Minutes 45 Visit Information Visit Number 5 Plan of Care Dates 01/16/21-04/18/21 Setting Treatment Setting Outpatient Care Visit Type Note Type Treatment Note Next Note Type Next Note Type Treatment Note General Information General Information Pt is a pleasant 80 year old male seen for a voice evaluation. Pt reported that approximately 2 years ago, he had shingles in his mouth and pharynx (varacellar zoster). Since that time, he has noted a change in his voice. He describes his voice as frequently changing, difficult to be heard and periodically aphonic. he saw Dr Mccoy, ENT, who diagnosed unilateral vocal fold paresis/weakness and recommended speech therapy . 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 Vocal quality demonstrated hoarseness, glottal strange, pitch instability, loudness instability, pitch breaks and aphonia. Subjective Identification Type Name,Date of Chief Complaint(s) Voice Rehab Expectation/Goals: Patient Goals Improved vocal quality Patient Knowledge/Awareness of SHIFT FOREMAN Role Excellent in Treatment Patient/Caregiver Compliance with Home Excellent Exercise Program Objective Short Term Goals Pt will complete vocal adduction exercises as described daily, as reported by pt. Pt will understand the anatomy and function of the laryngeal structures. Glued Wood Tester Goals Pt's overall vocal quality will improve to WFL. Treatment Activities Pt reports completing vocal adduction exercises once every other day. Pt presented with an overall more stable vocal quality at low and higher pitches. Pt's pitch continues to break within conversation in the middle pitch range. Education provided on consistent daily exercise practice and diaphragmatic breathing. Pt has been completing vocal adduction exercises at a lower pitch. Today, he practiced at his natural pitch. Discussed further practice with subtle pitch glide and increasing/ decreasing volume. This practice aims to increase control during vocal fold adduction and reduce pitch breaks. Assessment Patient Response to Treatment Excellent Rehab Potential Good Impairments Identified Dysphonia Progress Towards Goals Good Progress Assessment of Overall Progress Improving Reviewed with Patient Goals,Home Exercise Program Patient/Caregiver Understanding Excellent Plan Amount of Therapy Recommended 3-4 Months Comment every 4 weeks Length of Session 45 Minutes Treatment Emphasis Next Session review and demonstrate exercises performed as HEP. Therapeutic Contents Voice Training Provided Patient/Caregiver Instruction Home Exercise Program, Questions/Concerns Therapy Recommendations Continue with Current Program
--- NOTE | 2021-04-08 15:44 | ST.OPTN ---
Visit Care Team Role Provider Type Gordon Austin MD Attending Provider Physician Primary Care Provider Referring Provider Address: [address] [place] [address], [address], [address] BIOMEDICAL EQUIPMENT TECHNICIAN Treatment Note BIOMEDICAL EQUIPMENT TECHNICIAN Clinical Instructor Line Start: 03/12/21 13:14 Freq: Status: Active Protocol: Document 04/06/21 15:07 LNK (Rec: 04/06/21 15:07 LNK [email or web address]) Clinical Instructor Signature Clinical Instructor Clinical Instructor Yes BIOMEDICAL EQUIPMENT TECHNICIAN Treatment Note Start: 01/16/21 10:25 Freq: Status: Active Protocol: Document 04/08/21 15:34 LNK (Rec: 04/08/21 15:41 LNK [email or web address]) Speech Pathology Treatment Note Visit Information Plan of Care Dates 04/18/21-07/19/21 Setting Treatment Setting Outpatient Care Visit Type Note Type Re-Evaluation Next Note Type Next Note Type Treatment Note General Information General Information Pt is a pleasant 80 year old male seen for a voice evaluation. Pt reported that approximately 2 years ago, he had shingles in his mouth and pharynx (varacellar zoster). Since that time, he has noted a change in his voice. He describes his voice as frequently changing, difficult to be heard and periodically aphonic. he saw Dr Mccoy, ENT, who diagnosed unilateral vocal fold paresis/weakness and recommended speech therapy . 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 Vocal quality demonstrated hoarseness, glottal strange, pitch instability, loudness instability, pitch breaks and aphonia. Subjective Identification Type Name,Date of Chief Complaint(s) Voice Rehab Expectation/Goals: Patient Goals Improved vocal quality Patient Knowledge/Awareness of BIOMEDICAL EQUIPMENT TECHNICIAN Role Excellent in Treatment Patient/Caregiver Compliance with Home Excellent Exercise Program Objective Short Term Goals Pt will complete vocal adduction exercises as described daily, as reported by pt. Pt will understand the anatomy and function of the laryngeal structures.Goal Met New goals: Pt will increase vocal quality via exercised for breath support, appropriate pitch resonance as measured and reported by pt. Senior Care Goals Pt's overall vocal quality will improve to WFL. Treatment Activities Pt reports completing vocal adduction exercises once every other day. Pt presented with an overall more stable vocal quality at low and higher pitches. Pt's pitch continues to break within conversation in the middle pitch range. Education provided on consistent daily exercise practice and diaphragmatic breathing. Pt has been completing vocal adduction exercises at a lower pitch. Today, he practiced at his natural pitch. Discussed further practice with subtle pitch glide and increasing/ decreasing volume. This practice aims to increase control during vocal fold adduction and reduce pitch breaks. Assessment Patient Response to Treatment Excellent Rehab Potential Good Impairments Identified Dysphonia Progress Towards Goals Good Progress Assessment of Overall Progress Improving Assessment of Improvement Overall, pt's vocal quality has improved with adduction exercises. Pt is pleased with his progress. Reviewed with Patient Goals,Progress Being Made,Home Exercise Program Patient/Caregiver Understanding Excellent Plan Amount of Therapy Recommended 2-3 Months Comment every 4 weeks Length of Session 45 Minutes Therapeutic Contents Voice Training Provided Patient/Caregiver Instruction Home Exercise Program,Plan of Care,Questions/Concerns Therapy Recommendations Advance per Rehabilitation Protocol,Recommended Exercises /Activities
--- NOTE | 2021-04-08 15:45 | ST.OPPOC ---
Physical, Occupational & Speech Therapy At [facility] Visit Care Team Role Provider Type Gordon Austin MD Attending Provider Physician Primary Care Provider Referring Provider Address: [address] [place] [address], [address], [place], [address] Speech Pathology Plan of Care HOT WORT SETTLER Clinical Instructor Line Start: 03/12/21 13:14 Freq: Status: Active Protocol: Document 04/06/21 15:07 LNK (Rec: 04/06/21 15:07 LN [email or web address]) Clinical Instructor Signature Clinical Instructor Clinical Instructor Yes Speech Pathology Plan of Care General Information Pt is a pleasant 80 year old male seen for a voice evaluation. Pt reported that approximately 2 years ago, he had shingles in his mouth and pharynx (varacellar zoster). Since that time, he has noted a change in his voice. He describes his voice as frequently changing, difficult to be heard and periodically aphonic. he saw Dr Mccoy, ENT, who diagnosed unilateral vocal fold paresis/weakness and recommended speech therapy . 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 Vocal quality demonstrated hoarseness, glottal strange, pitch instability, loudness instability, pitch breaks and aphonia. Visit Number 5 Plan of Care Dates 04/18/21-07/19/21 Chief Complaint(s) Voice Rehabilitation Expectation/ Improved vocal quality Goals: Patient Goals Patient Knowledge/Awareness of Excellent HOT WORT SETTLER Role in Treatment Patient/Caregiver Compliance Excellent with Home Exercise Program Short Term Goals Pt will complete vocal adduction exercises as described daily, as reported by pt. Pt will understand the anatomy and function of the laryngeal structures.Goal Met New goals: Pt will increase vocal quality via exercised for breath support, appropriate pitch resonance as measured and reported by pt. Intermediate Goals Pt's overall vocal quality will improve to WFL. Treatment Activities Pt reports completing vocal adduction exercises once every other day. Pt presented with an overall more stable vocal quality at low and higher pitches. Pt's pitch continues to break within conversation in the middle pitch range. Education provided on consistent daily exercise practice and diaphragmatic breathing. Pt has been completing vocal adduction exercises at a lower pitch. Today, he practiced at his natural pitch. Discussed further practice with subtle pitch glide and increasing/decreasing volume. This practice aims to increase control during vocal fold adduction and reduce pitch breaks. Rehabilitation Potential Good Impairments Identified Dysphonia Progress Towards Goals Good Progress Assessment of Improvement Overall, pt's vocal quality has improved with adduction exercises. Pt is pleased with his progress. Reviewed with Patient Goals,Progress Being Made,Home Exercise Program Patient Understanding Excellent Amount of Therapy Recommended 2-3 Months Comment every 4 weeks Length of Session 45 Minutes Therapeutic Contents Voice Training Patient Recommendations Advance per Rehabilitatio,Recommended Exercises/ Act Electronically Signed by: Aysha Zacarias, HOT WORT SETTLER 04/08/21 4120 Please Sign and Return: I have reviewed this Plan of Care and certify that the skilled therapy services above are required to meet the patient?s needs. Physician Signature Date Printed Name and Credentials Clinical Instructor Signature Printed Name and Credentials
--- NOTE | 2021-04-29 12:14 | ST.OPTN ---
Visit Care Team Role Provider Type Gordon Austin MD Attending Provider Physician Primary Care Provider Referring Provider Address: [address] [place] [address], [address], [place], [address] WOOD CLUB NECK WHIPPER Treatment Note WOOD CLUB NECK WHIPPER Clinical Instructor Line Start: 03/12/21 13:14 Freq: Status: Active Protocol: Document 04/06/21 15:07 LNK (Rec: 04/06/21 15:07 LNK [id number]) Clinical Instructor Signature Clinical Instructor Clinical Instructor Yes WOOD CLUB NECK WHIPPER Treatment Note Start: 01/16/21 10:25 Freq: Status: Active Protocol: Document 04/29/21 11:29 LNK (Rec: 04/29/21 12:13 LNK [email or web address]) Speech Pathology Treatment Note Session Time Visit Start Time 11:30 Visit Stop Time 12:15 Total Visit Minutes 45 Visit Information Visit Number 7 Plan of Care Dates 04/18/21-07/19/21 Setting Treatment Setting Outpatient Care Visit Type Note Type Treatment Note Next Note Type Next Note Type Treatment Note General Information General Information Pt is a pleasant 80 year old male seen for a voice evaluation. Pt reported that approximately 2 years ago, he had shingles in his mouth and pharynx (varacellar zoster). Since that time, he has noted a change in his voice. He describes his voice as frequently changing, difficult to be heard and periodically aphonic. he saw Dr Mccoy, ENT, who diagnosed unilateral vocal fold paresis/weakness and recommended speech therapy . 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 Vocal quality demonstrated hoarseness, glottal strange, pitch insability, loundess instability, pitch breaks and aphonia. Subjective Identification Type Name,Date of Chief Complaint(s) Voice Rehab Expectation/Goals: Patient Goals Improved vocal quality Patient Knowledge/Awareness of WOOD CLUB NECK WHIPPER Role Excellent in Treatment Patient/Caregiver Compliance with Home Excellent Exercise Program Objective Short Term Goals Pt will complete vocal adduction exercises as described daily, as reported by pt. Pt will understand the anatomy and function of the laryngeal structures.Goal Met New goals: Pt will increase vocal quality via exercised for breath support, appropriate pitch resonance as measured and reported by pt. Fpc Goals Pt's overall vocal quality will improve to WFL. Treatment Activities Pt reports completing vocal adduction exercises once every other day. Pt presented with an overall more stable vocal quality at low and higher pitches. Pt's pitch continues to break within conversation in the middle pitch range. Pt has been completing vocal adduction exercises at a lower pitch. Today, pt demonstrated excellent ability to maintain pitch and even increase pitch range nearly 1 octave. However, during spoken language, his pitch will continue to break several times in a sentence. Discussed the option of seeing Dr. Beth for stroboscopy. Suspect scar tissue for Shingles event. Could be related to the pitch breaks along with paresis. Assessment Patient Response to Treatment Excellent Rehab Potential Good Impairments Identified Dysphonia Progress Towards Goals Good Progress Assessment of Overall Progress Improving Assessment of Improvement Overall, pt's vocal quality has improved with adduction exercises. Pt is pleased with his progress. He will give thought to seeing Dr. Beth . Reviewed with Patient Goals,Progress Being Made,Home Exercise Program Patient/Caregiver Understanding Excellent Plan Amount of Therapy Recommended 2-3 Months Comment every 4 weeks Length of Session 45 Minutes Therapeutic Contents Voice Training Provided Patient/Caregiver Instruction Home Exercise Program,Plan of Care,Questions/Concerns Therapy Recommendations Advance per Rehabilitation Protocol,Recommended Exercises /Activities
--- NOTE | 2021-05-27 10:17 | ST.OPTN ---
Visit Care Team Role Provider Type Gordno Austin MD Attending Provider Physician Primary Care Provider Referring Provider Address: [address] [place] [address], [address], [place], [address] CODING COMPLIANCE AUDITOR Treatment Note CODING COMPLIANCE AUDITOR Clinical Instructor Line Start: 03/12/21 13:14 Freq: Status: Active Protocol: Document 04/06/21 15:07 LNK (Rec: 04/06/21 15:07 LNK [id number]) Clinical Instructor Signature Clinical Instructor Clinical Instructor Yes CODING COMPLIANCE AUDITOR Treatment Note Start: 01/16/21 10:25 Freq: Status: Active Protocol: Document 05/27/21 09:23 LNK (Rec: 05/27/21 10:17 LNK [email or web address]) Speech Pathology Treatment Note Session Time Visit Start Time 09:30 Visit Stop Time 10:15 Total Visit Minutes 45 Visit Information Visit Number 8 Plan of Care Dates 04/18/21-07/19/21 Setting Treatment Setting Outpatient Care Visit Type Note Type Treatment Note Next Note Type Next Note Type Treatment Note General Information General Information Pt is a pleasant 80 year old male seen for a voice evaluation. Pt reported that approximately 2 years ago, he had shingles in his mouth and pharynx (varacellar zoster). Since that time, he has noted a change in his voice. He describes his voice as frequently changing, difficult to be heard and periodically aphonic. he saw Dr Mccoy, ENT, who diagnosed unilateral vocal fold paresis/weakness and recommended speech therapy . 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 Vocal quality demonstrated hoarseness, glottal strange, pitch instability, loudness instability, pitch breaks and aphonia. Subjective Identification Type Name,Date of Chief Complaint(s) Voice Rehab Expectation/Goals: Patient Goals Improved vocal quality Patient Knowledge/Awareness of CODING COMPLIANCE AUDITOR Role Excellent in Treatment Patient/Caregiver Compliance with Home Excellent Exercise Program Objective Short Term Goals Pt will complete vocal adduction exercises as described daily, as reported by pt. Pt will understand the anatomy and function of the laryngeal structures.Goal Met New goals: Pt will increase vocal quality via exercised for breath support, appropriate pitch resonance as measured and reported by pt. Prison Goals Pt's overall vocal quality will improve to WFL. Treatment Activities Pt reports completing vocal adduction and flexibility ( pitch raises) exercises every day. Pt has presented with an overall more stable vocal quality at low and higher pitches. Pt's speaking pitch continues to break within conversation in the middle pitch range. At a lower pitch during conversation, his vocal quality is rough. he speaks at nearly a monotone level as his pitch will vary and jump about with intonation. Pt completed exercise of reading sentences from lower pitch to higher pitch trying to maintain steady voice. Moderate difficulty maintaining stable voi. Assessment Patient Response to Treatment Excellent Rehab Potential Good Impairments Identified Dysphonia Progress Towards Goals Good Progress Assessment of Overall Progress Improving Assessment of Improvement Overall, pt's vocal quality has improved with adduction exercises. Pt is pleased with his progress. Discussed a consultation to Dr. Beth at [facility] regarding augmentation of paralyzed vocal fold. Pt would like to return to singing, if possible . Pt will make an appointment soon. Reviewed with Patient Goals,Progress Being Made,Home Exercise Program Patient/Caregiver Understanding Excellent Plan Amount of Therapy Recommended 1-2 Months Comment every 4 weeks Length of Session 45 Minutes Therapeutic Contents Voice Training Provided Patient/Caregiver Instruction Home Exercise Program,Plan of Care,Questions/Concerns Therapy Recommendations Advance per Rehabilitation Protocol,Recommended Exercises /Activities
--- NOTE | 2021-08-20 14:32 | ST.OPDS ---
Visit Care Team Role Provider Type Gordon Austin MD Attending Provider Physician Primary Care Provider Referring Provider Address: [address] [place] [address], [address], [place], [address] RAW SAMPLER Treatment Note RAW SAMPLER Clinical Instructor Line Start: 03/12/21 13:14 Freq: Status: Active Protocol: Document 04/06/21 15:07 LNK (Rec: 04/06/21 15:07 LNK [email or web address]) Clinical Instructor Signature Clinical Instructor Clinical Instructor Yes RAW SAMPLER Treatment Note Start: 01/16/21 10:25 Freq: Status: Active Protocol: Document 08/20/21 14:30 LNK (Rec: 08/20/21 14:32 LNK [email or web address]) Speech Pathology Treatment Note Setting Treatment Setting Outpatient Care Visit Type Note Type Discharge Summary General Information General Information Pt is a pleasant 80 year old male seen for a voice evaluation. Pt reported that approximately 2 years ago, he had shingles in his mouth and pharynx (varacellar zoster). Since that time, he has noted a change in his voice. He describes his voice as frequently changing, difficult to be heard and periodically aphonic. he saw Dr Mccoy, ENT, who diagnosed unilateral vocal fold paresis/weakness and recommended speech therapy . 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 Vocal quality demonstrated hoarseness, glottal strange, pitch insability, loundess instability, pitch breaks and aphonia. Assessment Assessment of Improvement Pt was seen by Dr Tobias for stroboscopy. According to Dr Mackenzie Tobias's notes, vocal fold implant or injection was recommended, which the pt declined . Will discharge pt from ST Plan Amount of Therapy Recommended No Further Therapy Frequency of Treatment No Further Therapy Comment every 4 weeks Therapy Recommendations Discharge from Speech Therapy
== END 2021-09-01 10:57 ==
LOC: SP 09:30
PROVIDERS: PCP Student in an Organized Health Care Education/Training Program; Referring Provider Student in an Organized Health Care Education/Training Program; Visit Provider Student in an Organized Health Care Education/Training Program
DX: R13.0 Aphagia (principal); J38.00 Paralysis of vocal cords and larynx, unspecified
CPT/HCPCS: 92507; 92520; 92524

== ENCOUNTER → 2021-05-27 10:07 | Outpatient (CLI) | payer OTHER, SELFPAY ==
[2021-05-27 11:22] LABS: BUN Creatinine Ratio 27.1 (6-22); Blood Urea Nitrogen 23 mg/dL (9-20); Calcium 9.5 mg/dL (8.4-10.2); Carbon Dioxide 27 mmol/L (22-32); Chloride 106 mmol/L (98-107); Estimated Glomerular Filt Rate > 60.0 mL/min (>60); Glucose 131 mg/dL (80-110); HEMOLYSIS < 15 (0-50); Potassium 4.4 mmol/L (3.4-5.1); Sodium 141 mmol/L (137-145)
[2021-05-27 11:23] LABS: Hemoglobin A1C% w Est Avg Glu 6.2 % (4.0-6.0)
== END ==
PROVIDERS: PCP Student in an Organized Health Care Education/Training Program; Referring Provider Student in an Organized Health Care Education/Training Program; Visit Provider Student in an Organized Health Care Education/Training Program
DX: E11.9 Type 2 diabetes mellitus without complications (principal); I10 Essential (primary) hypertension
CPT/HCPCS: 36415; 80048; 83036

== ENCOUNTER → 2021-07-22 12:07 | Outpatient (CLI) | payer OTHER, SELFPAY ==
--- NOTE | 2021-07-22 12:07 | DI.RAD.S_ITS ---
PROCEDURE: XR KNEE LT 3V INDICATIONS: Knee pain TECHNIQUE: 3 views of the knee were acquired. COMPARISON: [facility], RG, XR KNEE 2V LEFT, 04/14/2006, 11:46. [facility], CR, XR KNEE RT 3V, 08/08/2018, 16:28. FINDINGS: Bones: No acute fracture. Scattered degenerative subchondral sclerosis and spurring. Mild to moderate narrowing of the medial joint space. Severe narrowing of the patellofemoral joint space. Soft tissues: Scattered atheromatous calcifications. IMPRESSION: Left knee osteoarthritis as above, with interval progression since 04/14/06. Dictated by: Foreign Hagen M.D. on 07/22/2021 at 13:13 Approved by: Foreign Hagen M.D. on 07/22/2021 at 13:16
== END ==
PROVIDERS: PCP Student in an Organized Health Care Education/Training Program; Referring Provider Student in an Organized Health Care Education/Training Program; Visit Provider Student in an Organized Health Care Education/Training Program
DX: M25.562 Pain in left knee (principal); M17.12 Unilateral primary osteoarthritis, left knee
CPT/HCPCS: 73562

== ENCOUNTER → 2021-08-27 09:10 | Outpatient (CLI) | payer OTHER, SELFPAY ==
[2021-08-27 10:48] LABS: COVID19 -Nasal RAPID Negative (Negative)
== END ==
PROVIDERS: PCP Student in an Organized Health Care Education/Training Program; Referring Provider Surgery; Visit Provider Surgery
DX: Z20.822 Contact with and (suspected) exposure to COVID-19 (principal); Z01.812 Encounter for preprocedural laboratory examination
CPT/HCPCS: 87635; C9803

== ENCOUNTER 2021-08-28 08:17 | Day surgery (SDC) | payer OTHER, SELFPAY ==
[2021-08-28 08:40] VITALS: BP 114/59; PULSE 64; RESP 18; TEMP 36.1; O2SAT 99; BMI 28.7
--- NOTE | 2021-08-28 08:57 | SUR.PREOP ---
patient did not stop blood thinner prior to procedure. surgeon to bedside and explained this to patient. called and notified upon reschedule must stop four days prior to procedure. states understanding. 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
== END 2021-08-28 09:02 | disposition home or self-care (01) ==
LOC: ENDO 08:18
PROVIDERS: PCP Student in an Organized Health Care Education/Training Program; Referring Provider Surgery; Visit Provider Surgery

== ENCOUNTER → 2021-09-24 10:39 | Outpatient (CLI) | payer OTHER, SELFPAY ==
[2021-09-24 12:06] LABS: COVID19 -Nasal RAPID Negative (Negative)
== END ==
PROVIDERS: PCP Student in an Organized Health Care Education/Training Program; Referring Provider Surgery; Visit Provider Surgery
DX: Z01.812 Encounter for preprocedural laboratory examination (principal); Z20.822 Contact with and (suspected) exposure to COVID-19
CPT/HCPCS: 87635; C9803

== ENCOUNTER 2021-09-25 09:47 | Day surgery (SDC) | payer OTHER, SELFPAY ==
--- NOTE | 2021-09-25 | PATH_ITS ---
[facility] Accession Number: [id number] . 01 Material submitted: . colon - DESCENDING COLON POLYP; 20 CM RECTAL SIGMOID POLYP . 02 Diagnosis: Descending Colon Polyp, 20 cm Rectal Sigmoid Polyp, Biopsy: Sessile serrated adenoma. Hyperplastic polyp. MRV 09/29/2021 1208 Local . 02 Electronically signed: . Shanda Purvis MD, Pathologist NPI- [id number] . 01 Gross description: . DESCENDING COLON POLYP; 20 CM RECTAL SIGMOID POLYP: Received in formalin are 2 fragment(s) of chu, soft tissue measuring 0.4 x 0.2 x 0.2 cm to 0.3 x 0.3 x 0.2 cm submitted entirely in 1 cassette(s) /QBJ 09/26/2021 0410 Local . 02 Pathologist provided ICD-10: D12.6 . 02 CPT . 393262 Performed at: 01 [facility] [address], [place], [place] [id number] MD Barak Hernandez MD Phone: [phone] Performed at: 02 [facility] [address] [place], [place] [id number] MD Shanda Purvis MD Phone: [phone]
[2021-09-25 10:08] VITALS: BP 144/78; PULSE 68; RESP 16; TEMP 36.3; O2SAT 98; BMI 29.1
--- NOTE | 2021-09-25 10:30 | PM.HP.1 ---
History of Present Illness History of Present Illness Date Patient Seen: 09/25/21 Time Patient Seen: 10:30 Chief complaint: SCREENING COLONOSCOPY & EGD Narrative: H/o Novak's esophagus, colon cancer screening. Last colonoscopy was unsuccessful 2 years ago due to poor bowel prep Patient History Medical History (Updated 09/25/21 @ 09:46 by Vicky Morris, RN) Ankle pain (~1975) Barretts esophagus Cataracts, bilateral (~2009) Chicken pox (~1947) Fractures Hay fever (~1998) Hyperlipidemia Hypertension (~1995) Melanoma (~2011) Mumps (~1948) Peripheral neuropathy (~2007) Shoulder pain (~2013) Skin cancer (~2011) Sleep apnea (~2007) Tinnitus (~1979) Vision disorder Surgical History Anesthesia History of cataract removal with insertion of prosthetic lens (~2014) Hx of hernia repair Status post appendectomy (~1948) Family & Social History Family History Brother Age: 86 Diabetes mellitus Father Lung disease Social History: household members spouse Tobacco & Substance use: Smoking Status Former smoker alcohol intake current alcohol intake frequency holiday/special occasion Substance Use Type does not use Meds Home Medications and Allergies Home Medications Medication Instructions Recorded Confirmed Type Fish Oil (#FISH OIL) 1 iu PO Q DAY #0 08/24/11 09/25/21 History ascorbic acid (vitamin C) 1,000 mg 1,000 mg PO ONCE tab 06/07/18 09/25/21 History tablet,extended release vit C,E,zinc,copper-aoczs8m 250 1 cap PO DAILY 06/07/18 12/17/20 History mg-lutein 5 mg-zeaxanthin 1 mg capsule (Ocuvite Adult 50 Plus) dabigatran etexilate 150 mg 150 mg PO BID #180 cap 07/18/20 09/25/21 Rx capsule (Pradaxa) lisinopril 40 mg tablet 40 mg PO BID #180 tab 07/24/20 09/25/21 Rx calcium carbonate 500 mg calcium 500 mg PO DAILY 10/15/20 09/25/21 History (1,250 mg) chewable tablet (Calcium 500) rosuvastatin 5 mg tablet 2.5 mg PO DAILY tab 10/15/20 09/25/21 History amlodipine 10 mg tablet 10 mg PO DAILY #90 tab 12/29/20 09/25/21 Rx metformin 500 mg tablet See Rx Instructions .ROUTE 04/06/21 09/25/21 Rx .COMPLEX #180 tab furosemide 40 mg tablet 40 mg PO QDAY #90 tab 04/08/21 09/25/21 Rx Allergies Allergy/AdvReac Type Severity Reaction Status Date / Time No Known Drug Allergies Allergy Verified 09/25/21 09:40 Review of Systems Review of Systems ROS: Yes All systems reviewed with the patient and are negative except as otherwise documented Exam Vital Signs (past 8 hours): - 09/25/21 10:08 Temperature 97.3 F L Pulse Rate 68 Respiratory Rate 16 Blood Pressure 144/78 H Pulse Oximetry 98 Oxygen Delivery Method Room Air Const General: cooperative and healthy appearing Nutritional Appearance: well nourished Orientation: oriented x3 HENMT Head: normocephalic and atraumatic Eyes Sclera: sclerae normal Neck Neck: trachea midline Chest Chest: normal inspection of the chest Resp Effort & Inspection: normal respiratory effort and able to speak in complete sentences Cardio Rate: regular rate Rhythm: regular rhythm GI Palpation: soft Skin General: atrophy and dry skin Neuro General: patient alert and patient awake Cognition: normal cognition Extrem General: normal to inspection Psych Appearance: grossly normal Mental Status: mental status grossly normal Judgment: judgment good Assessment & Plan Assessment & Plan narrative: EGD for h/o Novak's esophagus colonoscopy for colon cancer screening. Both using moderate sedation COVID-19 COVID-19 status: Negative Time Spent With Patient Time with patient: less than 30 minutes Critical Care time: I spent a total of [] minutes of critical care time on this patient's care today; this time is exclusive of procedural time.
[2021-09-25] MEDS: LACTATED RINGERS 1,000 ML 42 ML IV (10:32)
--- NOTE | 2021-09-25 10:37 | PM.OP.ENDO ---
Operative Date/Time/Diagnoses Date of procedure: 09/25/21 Time of procedure: 10:38 Pre-op diagnosis: H/o Novak's esophagus, colon cancer screening Post-op diagnosis: same Procedure & Clinicians Study performed: EGD and colonoscopy with moderated sedation Same procedure as scheduled: Yes Indications: colon cancer screening, h/o Novak's esophagus Surgeon: Ruth Wallace Procedure Notes SCOAP/Timeout: done Procedure in detail: Preop diagnosis: History of Novak's esophagus Postop diagnosis: Same Operative procedure: EGD with moderate sedation Surgeon: Una Wallace MD Findings: No Novak's esophagus identified grossly. Stomach within normal limits. Duodenum within normal limits. Small hiatal hernia. Vocal cords show that they do not reapproximate to midline, no tumors or nodules identified Procedure: Patient placed in a lateral position. Anesthetic was given. Scope was inserted into the esophagus advanced into the stomach, insufflated and identified the pylorus. The patient to the duodenum was achieved. Insufflation extractions scope including retroflex had the above findings. Impression: No Novak's identified on this procedure. No significant pathology. Vocal cords do not meet midline but no nodules or masses identified Plan. Repeat EGD as needed Sedation minutes: 14 Findings: hiatal hernia Specimen(s): none sent Complications: none Impression: No Novak's seen Post-procedure Recommendations: Continue medication(s) Follow up: as needed Disposition: PACU
[2021-09-25] MEDS: LIDOCAINE 4% SOLN 50 ML 20 ML TOP (10:40)
[2021-09-25] MEDS: fentaNYL 250 MCG/5 ML INJ IV (10:55)
[2021-09-25] MEDS: MIDAZOLAM 5 MG/5 ML VIAL IV (11:01)
--- NOTE | 2021-09-25 11:06 | PM.OP.ENDO ---
Operative Date/Time/Diagnoses Date of procedure: 09/25/21 Time of procedure: 11:06 Pre-op diagnosis: Colon cancer screening Post-op diagnosis: same Procedure & Clinicians Study performed: Colonoscopy with moderate sedation and polypectomy Same procedure as scheduled: Yes Indications: Colon cancer screening Surgeon: Ruth Wallace Procedure Notes SCOAP/Timeout: Done Procedure in detail: Preop diagnosis: Colon cancer screening Postop diagnosis same Operative procedure: Colonoscopy with polypectomy using cold forceps. Anesthetic: Moderate sedation 4 mg Versed 100 micro g fentanyl Findings: Normal appearing colon with the exception of 2 small polyps in the descending colon each approximately 3 mm in size. Taken with cold forceps biopsy Procedure: Patient is placed in a lateral position. Rectal exam is performed showing normal tone no masses. Colonoscope inserted into the rectum and advanced to ileocecal valve with minimal difficulty. Insufflation extraction scope and the above findings. Impression: 2 small polyps taken with cold forceps biopsy. Both in the descending colon most distal being at 20 cm. Plan: Repeat colonoscopy in 5 years unless otherwise indicated by change in clinical condition Findings: polyp Specimen(s): other (Polyp x2 in a single jar) Complications: none Impression: Descending colon polyps x2. Less than 3 mm in size. No significant diverticulosis Post-procedure Recommendations: Colonscopy in 5 years Follow up: as needed Disposition: PACU
[2021-09-25 11:10] VITALS: BP 112/71; PULSE 61; RESP 12; TEMP 36.1; O2SAT 92
[2021-09-25 11:20] VITALS: BP 119/62; PULSE 60; RESP 12; O2SAT 92
[2021-09-25 11:30] VITALS: BP 132/76; PULSE 60; RESP 16; TEMP 36.4; O2SAT 95
[2021-09-25 12:10] VITALS: BP 156/69; PULSE 60; RESP 18; TEMP 36.3; O2SAT 96
== END 2021-09-25 12:10 | disposition home or self-care (01) ==
PROVIDERS: PCP Student in an Organized Health Care Education/Training Program; Referring Provider Surgery; Visit Provider Surgery
PROC: 0DJ08ZZ Inspection of Upper Intestinal Tract, Via Natural or Artificial Opening Endoscopic (ICD-10-PCS; CPT 43235; principal; 2021-09-25 10:45)
PROC: 0DJD8ZZ Inspection of Lower Intestinal Tract, Via Natural or Artificial Opening Endoscopic (ICD-10-PCS; CPT 45378; 2021-09-25 10:45)
DX: Z12.11 Encounter for screening for malignant neoplasm of colon (principal); Z87.19 Personal history of other diseases of the digestive system; K44.9 Diaphragmatic hernia without obstruction or gangrene; D12.6 Benign neoplasm of colon, unspecified
CPT/HCPCS: 45380; 43235; 82962; 99152; J2250; J3010

== ENCOUNTER → 2022-02-24 09:49 | Outpatient (CLI) | payer OTHER, SELFPAY ==
[2022-02-24 10:38] LABS: BUN Creatinine Ratio 21.2 (6-22); Blood Urea Nitrogen 21 mg/dL (9-20); Estimated Glomerular Filt Rate > 60 mL/min (>60)
[2022-02-24 11:16] LABS: Creatinine Urine Random 178.2 mg/dL
[2022-02-24 11:21] LABS: Microalbumi Creatinin Ratio Ur 12.3 ug/mg CR (<30); Microalbumin Urine Random 2.2 mg/dL (0-1.6)
== END ==
PROVIDERS: PCP Student in an Organized Health Care Education/Training Program; Referring Provider Student in an Organized Health Care Education/Training Program; Visit Provider Student in an Organized Health Care Education/Training Program
DX: E11.9 Type 2 diabetes mellitus without complications (principal); I10 Essential (primary) hypertension
CPT/HCPCS: 36415; 82043; 82565; 82570; 83036; 84520

== ENCOUNTER → 2022-03-04 10:26 | Outpatient (CLI) | payer OTHER, SELFPAY ==
--- NOTE | 2022-03-04 10:27 | DI.RAD.S_ITS ---
PROCEDURE: XR FEMUR LT MIN 2V INDICATIONS: Fall, hip and thigh contusion TECHNIQUE: 4 views of the femur were acquired. COMPARISON: [facility], CR, XR FEMUR RT MIN 2V, 08/08/2018, 16:28. FINDINGS: Bones: No fractures or dislocations. No suspicious bony lesions. Soft tissues: No suspicious soft tissue calcifications or masses. IMPRESSION: 1. No fracture or dislocation. Dictated by: Barak Potts M.D. on 03/04/2022 at 16:04 Approved by: Barak Potts M.D. on 03/04/2022 at 16:04
--- NOTE | 2022-03-04 10:27 | DI.RAD.S_ITS ---
PROCEDURE: XR HIP W PEL IF DONE LT 2V INDICATIONS: Fall, hip and thigh contusion TECHNIQUE: AP pelvis with lateral view(s) of the left hip(s). COMPARISON: None. FINDINGS: Bones: No fractures or dislocations. Minor joint space loss in the left femoroacetabular joint compared to the right. Minimal superior acetabular spurring. Pelvic ring appears intact. No suspicious bony lesions. Soft tissues: The visualized bowel gas pattern is normal. No suspicious soft tissue calcifications. IMPRESSION: 1. Mild left femoroacetabular joint degeneration. Dictated by: Julissa Layton M.D. on 03/04/2022 at 13:56 Approved by: Julissa Layton M.D. on 03/04/2022 at 13:57
== END ==
PROVIDERS: PCP Student in an Organized Health Care Education/Training Program; Referring Provider Student in an Organized Health Care Education/Training Program; Visit Provider Student in an Organized Health Care Education/Training Program
DX: S70.02XA Contusion of left hip, initial encounter (principal); S70.12XA Contusion of left thigh, initial encounter; M16.12 Unilateral primary osteoarthritis, left hip; W19.XXXA Unspecified fall, initial encounter
CPT/HCPCS: 73502; 73552

== ENCOUNTER → 2022-09-06 10:40 | Outpatient (CLI) | payer OTHER, SELFPAY ==
[2022-09-06 12:36] LABS: BUN Creatinine Ratio 22.8 (6-22); Blood Urea Nitrogen 23 mg/dL (9-20); Calcium 9.1 mg/dL (8.4-10.2); Carbon Dioxide 29 mmol/L (22-32); Chloride 102 mmol/L (98-107); Estimated Glomerular Filt Rate > 60 mL/min (>60); Glucose 118 mg/dL (80-110); HEMOLYSIS < 15 (0-50); Potassium 4.2 mmol/L (3.4-5.1); Sodium 143 mmol/L (137-145)
== END ==
PROVIDERS: PCP Student in an Organized Health Care Education/Training Program; Referring Provider Student in an Organized Health Care Education/Training Program; Visit Provider Student in an Organized Health Care Education/Training Program
DX: E11.9 Type 2 diabetes mellitus without complications (principal)
CPT/HCPCS: 36415; 80048; 83036

== ENCOUNTER → 2023-03-16 10:13 | Outpatient (CLI) | payer OTHER, SELFPAY ==
[2023-03-17 15:51] LABS: Labcorp Hemoglobin (Hb) A1c 6.4 % (4.8-5.6)
== END ==
PROVIDERS: PCP Student in an Organized Health Care Education/Training Program; Referring Provider Student in an Organized Health Care Education/Training Program; Visit Provider Student in an Organized Health Care Education/Training Program
DX: E11.9 Type 2 diabetes mellitus without complications (principal)
CPT/HCPCS: 36415; 83036

== ENCOUNTER → 2023-05-02 11:13 | Outpatient (CLI) | payer OTHER, SELFPAY ==
[2023-05-02 12:27] LABS: Add Manual Diff / Slide Review NO; Basophils Absolute Auto 100 /uL (0-100); Basophils Percent Auto 0.9 % (0-2); Eosinophils Absolute Auto 300 /uL (0-450); Eosinophils Percent Auto 2.9 % (2-4); Hematocrit 41.5 % (41-53); Hemoglobin 13.8 g/dL (13.5-17.5); Lymphocytes Absolute Auto 1700 /uL (1100-4500); Lymphocytes Percent Auto 17.8 % (25-40); Mean Corpuscular HGB Conc 33.3 % (30-36); Mean Corpuscular Volume 90.1 fL (80-100); Monocytes Absolute Auto 700 /uL (0-900); Monocytes Percent Auto 7.9 % (3-14); Neutrophils Absolute Auto 6700 /uL (1500-7000); Neutrophils Percent Auto 70.5 % (50-75); Platelet Count 185 X10^3/uL (150-400); Red Cell Distribution Width 14.6 % (11.6-14.8); White Blood Cell Count 9.5 X10^3/uL (4.5-11.0)
[2023-05-02 12:47] LABS: BUN Creatinine Ratio 21.8 (6-22); Blood Urea Nitrogen 19 mg/dL (9-20); Calcium 8.9 mg/dL (8.4-10.2); Carbon Dioxide 29 mmol/L (22-32); Chloride 105 mmol/L (98-107); Estimated Glomerular Filt Rate > 60 mL/min (>60); Glucose 149 mg/dL (80-110); HEMOLYSIS < 15 (0-50); Potassium 4.5 mmol/L (3.4-5.1); Sodium 142 mmol/L (137-145)
== END ==
PROVIDERS: PCP Student in an Organized Health Care Education/Training Program; Referring Provider Internal Medicine Cardiovascular Disease; Visit Provider Internal Medicine Cardiovascular Disease
DX: I10 Essential (primary) hypertension (principal)
CPT/HCPCS: 36415; 80048; 85025

== ENCOUNTER → 2023-05-12 06:39 | Outpatient (CLI) | payer OTHER, SELFPAY ==
--- NOTE | 2023-05-12 06:40 | DI.ECHO.S_ITS ---
[facility]---------+ [facility] +---------+ : : [address] : : : : [phone] : : : : Phone: [phone] Echocardiogram Report + + :Name: BERNADINE MARTINEZ Study Date: 05/12/2023 Height: 72 in : :[facility] ReadingLocation: Weight: 210 lb : : Gender: Male BSA: 2.2 m2 : :: 1940 Age: 83 yrs BP: 143/86 mmHg: :Reason For Study: Other specified disorders of Arteries and : :Arteriol : :Ordering Physician: Diane, : :Layla Performed By: Alisha Munguia : :Referring: LAYLA CONTRERAS : + + Interpretation Summary 1) Normal left ventricular size with moderately reduced systolic function (EF 35-40%). 2) Mildly enlarged right ventricle with moderately reduced function. 3) Severe biatrial enlargement present. 4) There is mild to moderate mitral regurgitation. 5) There is mild aortic stenosis. 6) The ascending aorta is mild-moderately enlarged at 4.5cm. 7) No prior Echo available for comparison. Procedure: A two-dimensional transthoracic echocardiogram with color flow and Doppler was performed. The study quality was technically adequate. There is no prior echocardiogram noted for this patient. The patient was in atrial fibrillation with heart rates between 65 bpm during the exam. Left Ventricle: The left ventricle is normal in size. There is mild concentric left ventricular hypertrophy. The ejection fraction is estimated to be 35-40%. There is moderate global hypokinesis of the left ventricle. Diastolic function could not be accurately assessed due to atrial fibrillation. Right Ventricle: The right ventricle is mildly dilated. Right ventricular systolic function is moderately reduced. Atria: The left atrium is severely dilated. The right atrium is severely dilated. There is no Doppler evidence for an interatrial shunt. Mitral Valve: The mitral valve leaflets appear mildly thickened, but open well. There is no mitral valve stenosis. There is mild to moderate mitral regurgitation. Aortic Valve: The aortic valve is trileaflet. The aortic valve opens well. There is moderate aortic valve sclerosis. There is mild aortic stenosis. No aortic regurgitation is present. Tricuspid Valve: The tricuspid valve leaflets are thin and pliable. There is no tricuspid stenosis. There is mild tricuspid regurgitation. The right ventricular systolic pressure is estimated to be at least 30 mmHg based on an estimated right atrial pressure of 8 mm Hg. Pulmonic Valve: The pulmonic valve leaflets are thin and pliable; valve motion is normal. There is no pulmonic valvular stenosis. There is trace pulmonic regurgitation. Great Vessels: The aortic root is normal size. The ascending aorta is mild- moderately enlarged. The pulmonary artery is normal size. The IVC is dilated (diameter is greater than 2.1 cm) yet it collapses greater than 50% with a sniff. This suggests a right atrial pressure of 8 mm Hg. Pericardium/ Pleura There is no pericardial effusion. MMode/2D Measurements & Calculations LVIDd: 4.8 cm LVOT diam: 2.2 cm LVIDs: 4.0 cm Ao root diam: 3.5 cm FS: 16.7 % asc Aorta Diam: 4.5 cm EPSS: 0.60 cm IVSd: 1.2 cm LVPWd: 1.2 cm LV hogan. diameter/BSA (cm/m^2): 2.2 LV sys. diameter/BSA (cm/m^2): 1.8 LA A2 area: 29.9 cm2 RA long axis: 7.2 cm LA A4 area: 30.8 cm2 RA area: 31.7 cm2 LA length (vol): 7.0 cm RA vol: 119.1 ml LA vol: 111.7 ml RA : 54.8 ml/m2 LA vol index: 51.3 ml/m2 RVD1 (basal): 4.3 cm LVLs ap4: 6.5 cm LVLd ap2: 7.2 cm TAPSE_phl: 1.4 cm LVLs ap2: 6.7 cm Doppler Measurements & Calculations Ao V2 max: 146.0 cm/sec LVOT Max Emeterio: 67.3 cm/sec Ao V2 mean: 107.6 cm/sec LV V1 max P.8 mmHg Ao max P.0 mmHg LV V1 VTI: 14.8 cm Ao mean P.0 mmHg ANDREW(I,D): 1.6 cm2 Ao V2 VTI: 35.9 cm ANDREW(V,D): 1.8 cm2 sev ratio: 0.41 ANDREW indexed to BSA (cm^2/m^2): 0.72 TR max emeterio: 236.3 cm/sec SV(LVOT): 56.1 ml TR max P.6 mmHg PA V2 max: 69.8 cm/sec PA V2 mean: 49.9 cm/sec PA mean P.0 mmHg PA pr(Accel): 47.0 mmHg AV VR_phl: 0.46 ANDREW(VTI)/BSA_phl: 0.72 Reading Physician:12:14 PM
== END ==
PROVIDERS: PCP Student in an Organized Health Care Education/Training Program; Referring Provider Internal Medicine Cardiovascular Disease; Visit Provider Internal Medicine Cardiovascular Disease
DX: I77.89 Other specified disorders of arteries and arterioles (principal); I08.3 Combined rheumatic disorders of mitral, aortic and tricuspid valves
CPT/HCPCS: 93306

== ENCOUNTER → 2024-03-01 16:26 | Outpatient (CLI) | payer OTHER, SELFPAY ==
--- NOTE | 2024-03-01 16:27 | DI.RAD.S_ITS ---
PROCEDURE: XR ANKLE RT MIN 3V INDICATIONS: chronic pain, lateral, hx with injury two years ago TECHNIQUE: 3 views of the ankle were acquired. COMPARISON: [facility], CR, XR ANKLE RT MIN 3V, 06/09/2020, 10:34. FINDINGS: Bones: No acute fractures or dislocations. Ankle mortise is normally aligned. No suspicious bony lesions. Arthritic changes are at the tibiotalar joint. Soft tissues: No tibiotalar joint effusion. Achilles tendon appears normal. 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 Dictated by: Bethany Kirby M.D. on 03/02/2024 at 13:50 Approved by: Bethany Kirby M.D. on 03/02/2024 at 13:52
== END ==
LOC: RAD 16:27
PROVIDERS: PCP Nurse Practitioner; Referring Provider Nurse Practitioner; Visit Provider Nurse Practitioner
DX: M25.571 Pain in right ankle and joints of right foot (principal)
CPT/HCPCS: 73610

== ENCOUNTER → 2024-03-05 08:20 | Outpatient (CLI) | payer OTHER, SELFPAY ==
[2024-03-05 09:34] LABS: Add Manual Diff / Slide Review NO; Basophils Absolute Auto 100 /uL (0-100); Basophils Percent Auto 1.3 % (0-2); Eosinophils Absolute Auto 400 /uL (0-450); Eosinophils Percent Auto 4.5 % (2-4); Hematocrit 42.2 % (41-53); Hemoglobin 14.5 g/dL (13.5-17.5); Lymphocytes Absolute Auto 1600 /uL (1100-4500); Lymphocytes Percent Auto 17.7 % (25-40); Mean Corpuscular HGB Conc 34.3 % (30-36); Mean Corpuscular Hemoglobin 30.8 PG (26-34); Mean Corpuscular Volume 89.7 fL (80-100); Monocytes Absolute Auto 1000 /uL (0-900); Monocytes Percent Auto 10.3 % (3-14); Neutrophils Absolute Auto 6200 /uL (1500-7000); Neutrophils Percent Auto 66.2 % (50-75); Platelet Count 203 X10^3/uL (150-400); White Blood Cell Count 9.3 X10^3/uL (4.5-11.0)
[2024-03-05 09:46] LABS: Hemoglobin A1C% w Est Avg Glu 6.7 % (4.0-6.0)
[2024-03-05 09:53] LABS: Alanine Aminotransferase 12 IU/L (<50); Albumin 4.1 g/dL (3.5-5.0); Albumin Globulin Ratio 1.4 (1.0-2.8); Alkaline Phosphatase 48 U/L (38-126); Aspartate Aminotransferase 19 IU/L (17-59); BUN Creatinine Ratio 20.4 (6-22); Bilirubin Total 0.8 mg/dL (0.2-1.3); Blood Urea Nitrogen 19 mg/dL (9-20); Calcium 9.2 mg/dL (8.4-10.2); Carbon Dioxide 28 mmol/L (22-32); Chloride 106 mmol/L (98-107); Cholesterol 195 mg/dL (140-199); Estimated Glomerular Filt Rate > 60 mL/min (>60); Glucose 100 mg/dL (80-110); HDL Cholesterol 41 mg/dL (40-60); HEMOLYSIS < 15 (0-50); LDL Cholesterol Calculated 131 mg/dL (<100); Potassium 4.3 mmol/L (3.4-5.1); Sodium 140 mmol/L (137-145); Total Protein 7.1 g/dL (6.3-8.2); Triglycerides 114 mg/dL (35-150)
[2024-03-05 10:12] LABS: Free T3, Triiodothyronine Free 3.21 pg/mL (2.77-5.27); Free T4, Direct Thyroxine 1.04 ng/dL (0.78-2.19)
[2024-03-05 10:20] LABS: Prostate Specific Antigen Scrn 0.235 ng/mL (0.1-4.0)
[2024-03-05 10:25] LABS: Thyroid Stimulating Hormone 2.32 uIU/mL (0.47-4.68)
[2024-03-05 10:39] LABS: Microalbumin Urine Random 1.9 mg/dL (0-1.6)
[2024-03-05 10:40] LABS: Creatinine Urine Random 118.1 mg/dL
== END ==
PROVIDERS: PCP Nurse Practitioner; Referring Provider Physician Assistant; Visit Provider Physician Assistant
DX: Z12.5 Encounter for screening for malignant neoplasm of prostate (principal); E11.9 Type 2 diabetes mellitus without complications; I50.9 Heart failure, unspecified; E78.2 Mixed hyperlipidemia; I10 Essential (primary) hypertension; R00.1 Bradycardia, unspecified; G62.9 Polyneuropathy, unspecified
CPT/HCPCS: 36415; 80053; 80061; 82043; 82570; 83036; 84439; 84443; 84481; 85025; G0103

== ENCOUNTER → 2024-05-07 09:37 | Outpatient (CLI) | payer OTHER, SELFPAY ==
--- NOTE | 2024-05-07 09:38 | DI.RAD.S_ITS ---
PROCEDURE: [place] BARIUM SWALLOW W SPEECH INDICATIONS: s/sx aspiration w/swallow screening COMPARISON: TECHNIQUE: Examination was conducted in conjunction with speech pathology per standard protocol. In the lateral projection, filming was performed of the patient swallowing. AP projection filming may also be performed with patient swallowing. COMPARISON: [facility], , [place] BARIUM SWALLOW, 06/12/2020, 11:46. FINDINGS: Function: The oral preparatory phase appears normal, with proper containment. The subsequent oral propulsive phase, pharyngeal phase, and esophageal phase of swallowing also appear normal with all proffered substances. Moderate laryngotracheal penetration without aspiration. No pathologic vallecular pooling. Morphology: No cricopharyngeal bar is identified. No cervical esophageal webs. No Zenker's diverticulum. No strictures. IMPRESSION: Moderate penetration without aspiration. Dictated by: Bethany Kirby M.D. on 05/07/2024 at 15:58 Approved by: Bethany Kirby M.D. on 05/07/2024 at 15:58
--- NOTE | 2024-05-07 13:54 | ST.SWALLOW ---
Visit Care Team Role Provider Type AMANDA Tsang Attending Provider [facility] Family Provider Primary Care Provider Referring Provider Specialty: Family Practice Address: [address] [place] [address], [facility] Email: [email or web address] Modified Barium Swallow Study COURT RECORDER Modified Barium Swallow Study Start: 05/07/24 10:35 Freq: Status: Active Protocol: Document 05/07/24 12:45 LNK (Rec: 05/07/24 13:54 LNK [id number]) Modified Barium Swallow Study Total Time Visit Start Time 10:00 Visit Stop Time 10:30 Total Visit Minutes 30 Referral Referring Physician Halina Remy MD Setting Setting Outpatient Care Patient Information Identification Type Name,Date of Patient History Pt was seen for a Modified Barium swallow Study at the referral of Dr Remy. Pt c/o coughing/choking when eating/ drinking approximately 2x/week . Pt's medical history includes: CVA about 5 years ago, unilateral vocal fold paralysis, Novak's esophagus and a herpes/shingles virus in his mouth and throat that resulted in a significant weight loss. 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 At discharge from therapy, pt saw Dr Tobias, ENT for stroboscopy. According to Dr. Tobias's notes, vocal fold implant or injection was recommended, which the pt declined. Subjective Observations Pt was seated in the fluoroscopy chair with directions and procedures described for him. He indicated he understood and agreed to proceed. Patient Positioning Position View Lat-A/P Imaging Lateral View Textures Administered Trials Presented Thin Liquid via Spoon (IDDSI 0 ),Thin Liquid via Cup (IDDSI 0 ),Extremely Thick Liquid via Spoon (IDDSI 4),Regular (IDDSI 7) Barium Tablet Yes The IDDSI Framework Protocol: IDDSI.1 Oral Impairment Source: The Modified Barium Swallow Impairment Profile (MBSImP??) Lip Closure No labial escape Tongue Control During Bolus Hold Cohesive bolus between tongue to palatal seal Bolus Preparation/Mastication Timely & efficient chewing & mashing Bolus Transport/Lingual Motion Brisk tongue motion Oral Residue Complete oral clearance Initiation of Pharyngeal Swallow Bolus head at posterior laryngeal surface of epiglottis Additional Oral Impairment Observations OME and DKS were observed to be WNL. Mastication observed with rotary chew pattern. Good bolus formation, control and AP transition. Pharyngeal Impairment Source: The Modified Barium Swallow Impairment Profile (MBSImP??) Soft Palate Elevation No bolus between soft palate & pharyngeal wall Laryngeal Elevation Part.sup.move.thyroid cart/ part.approx.arytenoids to epiglot.petiole Anterior Hyoid Excursion Partial anterior movement Epiglottic Movement Complete inversion Laryngeal Vestibular Closure Incomplete; narrow column air/ contrast in laryngeal vestibule Pharyngeal Stripping Wave Present - diminished Pharyngoesophageal Segment Opening Partial distention/partial duration; partial obstruction of flow Tongue Base Retraction Narrow column of contrast/air betwn tongue base & post. pharyngeal wall Pharyngeal Residue Collection of residue within/ on pharyngeal structures Location Valleculae Additional Pharyngeal Impairment -Weak tongue base retraction Observations and hyolaryngeal elevation and movement. -Laryngeal penetration of thin liquid x4 with laryngeal residue -No tracheal aspiration observed -Pharyngeal residue observed post swallow and was observed to enter upper airway. -No tracheal aspiration was observed. Head turn to the left was effective in eliminating laryngeal penetration, indicating continued right vocal fold weakness and potential for aspiration. A/P View Textures Administered Trials Presented Thin Liquid via Cup (IDDSI 0) The IDDSI Framework Protocol: IDDSI.1 A/P View Observations Pharyngeal Contraction Complete Esophageal Clearance Upright Position Complete clearance; esophageal coating Vocal Fold Function Good Clinical Impressions Dysphagia Type Pharyngeal Findings See summary of pharyngeal phase (above). Rehabilitation Potential Good Patient Appropriate for Therapy Yes Recommendations Diet Comments No change in diet recommended Aspiration Precautions Recommended Precautions Right Head Turn Treatment Plan Therapy Recommendations Outpatient Speech Therapy,Base of Tongue Exercises Recommended Referrals ENT Consult Additional Recommended Referrals Recommend ENT re-evaluation to determine current status of R vocal fold Additional Strategies Recommended Pt to discuss with ENT vocal fold augmentastion to improve adduction effica
== END ==
LOC: RAD 09:37
PROVIDERS: Family Provider Nurse Practitioner; PCP Nurse Practitioner; Referring Provider Nurse Practitioner; Visit Provider Nurse Practitioner
DX: R13.19 Other dysphagia (principal); Z87.09 Personal history of other diseases of the respiratory system
CPT/HCPCS: 74230; 92611

== ENCOUNTER → 2024-08-02 15:19 | Outpatient (CLI) | payer OTHER, SELFPAY ==
[2024-08-02 17:31] LABS: Hemoglobin A1C% w Est Avg Glu 6.1 % (4.0-6.0)
[2024-08-02 17:37] LABS: Aspartate Aminotransferase 22 IU/L (17-59); BUN Creatinine Ratio 21.1 (6-22); Blood Urea Nitrogen 24 mg/dL (9-20); Calcium 8.8 mg/dL (8.4-10.2); Carbon Dioxide 26 mmol/L (22-32); Chloride 105 mmol/L (98-107); Cholesterol 145 mg/dL (140-199); Estimated Glomerular Filt Rate > 60 mL/min (>60); Glucose 94 mg/dL (80-110); HDL Cholesterol 31 mg/dL (40-60); HEMOLYSIS < 15 (0-50); LDL Cholesterol Calculated 94 mg/dL (<100); Sodium 139 mmol/L (137-145); Triglycerides 102 mg/dL (35-150)
== END ==
PROVIDERS: Family Provider Nurse Practitioner; PCP Internal Medicine; Referring Provider Internal Medicine; Visit Provider Internal Medicine
DX: E11.69 Type 2 diabetes mellitus with other specified complication (principal); E78.5 Hyperlipidemia, unspecified; I50.22 Chronic systolic (congestive) heart failure
CPT/HCPCS: 36415; 80048; 80061; 83036; 84450

== ENCOUNTER → 2025-03-07 14:36 | Outpatient (CLI) | payer OTHER, SELFPAY ==
[2025-03-07 15:27] LABS: Hematocrit 45.3 % (41-53); Mean Corpuscular Volume 87.7 fL (80-100); Platelet Count 196 X10^3/uL (150-400); Red Blood Cell Count 5.16 X10^6/uL (4.5-5.9); Red Cell Distribution Width 16.1 % (11.6-14.8); White Blood Cell Count 9.4 X10^3/uL (4.5-11.0)
[2025-03-07 15:39] LABS: Hemoglobin A1C% w Est Avg Glu 6.2 % (4.0-6.0)
[2025-03-07 16:35] LABS: Creatinine Urine Random 40.23 mg/dL
[2025-03-07 16:39] LABS: Microalbumin Urine Random 1.3 mg/dL (0-1.6)
[2025-03-08 04:39] LABS: HEMOLYSIS < 15 (0-50); Prostate Specific Antigen 0.207 ng/mL (0.10-4.00)
[2025-03-08 04:52] LABS: Aspartate Aminotransferase 28 IU/L (17-59); BUN Creatinine Ratio 21.1 (6-22); Blood Urea Nitrogen 24 mg/dL (9-20); Calcium 9.7 mg/dL (8.4-10.2); Carbon Dioxide 21 mmol/L (22-32); Chloride 108 mmol/L (98-107); Cholesterol 144 mg/dL (140-199); Estimated Glomerular Filt Rate > 60 mL/min (>60); Glucose 103 mg/dL (70-99); HDL Cholesterol 40 mg/dL (40-60); LDL Cholesterol Calculated 85 mg/dL (<100); Potassium 4.7 mmol/L (3.4-5.1); Sodium 140 mmol/L (137-145); Triglycerides 95 mg/dL (35-150)
== END ==
LOC: LAB 14:37
PROVIDERS: Family Provider Nurse Practitioner; PCP Internal Medicine; Referring Provider Internal Medicine; Visit Provider Internal Medicine
DX: E11.69 Type 2 diabetes mellitus with other specified complication (principal); N40.1 Benign prostatic hyperplasia with lower urinary tract symptoms; E78.5 Hyperlipidemia, unspecified; E78.2 Mixed hyperlipidemia; I48.20 Chronic atrial fibrillation, unspecified; N13.8 Other obstructive and reflux uropathy
CPT/HCPCS: 36415; 80048; 80061; 82043; 82570; 83036; 84153; 84450; 85027

== ENCOUNTER → 2025-08-22 14:26 | Outpatient (CLI) | payer OTHER, SELFPAY ==
[2025-08-22 15:04] LABS: Hemoglobin A1C% w Est Avg Glu 6.4 % (4.0-6.0)
[2025-08-22 15:42] LABS: Blood Urea Nitrogen 26 mg/dL (9-20); Calcium 9.3 mg/dL (8.4-10.2); Carbon Dioxide 27 mmol/L (22-32); Chloride 101 mmol/L (98-107); Cholesterol 128 mg/dL (140-199); Estimated Glomerular Filt Rate > 60 mL/min (>60); Glucose 107 mg/dL (70-99); HDL Cholesterol 42 mg/dL (40-60); HEMOLYSIS 76 (0-50); Potassium 4.9 mmol/L (3.4-5.1); Sodium 138 mmol/L (137-145); Triglycerides 113 mg/dL (35-150)
== END ==
PROVIDERS: Family Provider Nurse Practitioner; PCP Internal Medicine; Referring Provider Internal Medicine; Visit Provider Internal Medicine
DX: E11.69 Type 2 diabetes mellitus with other specified complication (principal); E78.5 Hyperlipidemia, unspecified; E78.2 Mixed hyperlipidemia
CPT/HCPCS: 36415; 80048; 80061; 83036; 84450